=== PATIENT | male | born 1950 | race Caucasian/White ===

== ENCOUNTER 2022-06-13 03:32 | Emergency (ER) | payer MEDICARE, OTHER, SELFPAY ==
[2022-06-13 03:44] VITALS: BP 130/67; PULSE 74; RESP 18; TEMP 37.2; O2SAT 96; BMI 28.2
--- NOTE | 2022-06-13 03:46 | PC.NURSE ---
Patient blood glucose is 342 on hospital glucometer.
--- NOTE | 2022-06-13 04:03 | XRR_ITS ---
PROCEDURE INFORMATION: Exam: XR Chest Exam date and time: 06/13/2022 5:11 AM Age: 71 years old Clinical indication: Other: Hypoglycemia HX renal failure TECHNIQUE: Imaging protocol: Radiologic exam of the chest. Views: 1 view. COMPARISON: No relevant prior studies available. FINDINGS: Tubes, catheters and devices: Right central catheter tip projects over the SVC. Lungs: No consolidation. Pleural spaces: Unremarkable. No pleural effusion. No pneumothorax. Heart/Mediastinum: Cardiomegaly. Bones/joints: No acute fracture. XR/XR chest 1V portable [id number] IMPRESSION: No acute findings.
--- NOTE | 2022-06-13 04:19 | USR_ITS ---
PROCEDURE INFORMATION: Exam: US Duplex Left Lower Extremity Arteries Or Arterial Bypass Grafts Exam date and time: 06/13/2022 4:44 AM Age: 71 years old Clinical indication: Other: Discolored toes; Additional info: Discolored toes HX vasc disease TECHNIQUE: Imaging protocol: Left Real-time duplex scan of the arteries or arterial bypass grafts of the left lower extremity with 2-D haque scale, color Doppler flow and spectral waveform analysis. Images documented and saved. COMPARISON: CR (LOW EXM, ) 06/13/2022 4:27 AM FINDINGS: Left common femoral artery: No occlusion or significant stenosis. Normal waveform. Left superficial femoral artery: No occlusion or significant stenosis. Normal waveform. Left popliteal artery: No occlusion or significant stenosis. Normal waveform. Left calf/foot arteries: Triphasic flow throughout the left lower extremity except for biphasic flow in the left anterior tibial artery and dorsalis pedis artery. Other arteries: No significant arterial stenosis based on Doppler velocities and velocity ratios. US/CV arterial duplex [facility] [id number] IMPRESSION: 1. No significant arterial stenosis based on Doppler velocities and velocity ratios. 2. Triphasic flow throughout the left lower extremity except for biphasic flow in the left anterior tibial artery and dorsalis pedis artery.
--- NOTE | 2022-06-13 04:19 | XRR_ITS ---
PROCEDURE INFORMATION: Exam: XR Left Foot Exam date and time: 06/13/2022 4:27 AM Age: 71 years old Clinical indication: Other: Bruised discolored L forefoot TECHNIQUE: Imaging protocol: Radiologic exam of the Left foot. Views: 3 or more views. COMPARISON: No relevant prior studies available. FINDINGS: Bones/joints: Degenerative changes are noted. Focal area of cortical irregularity noted along the 4th metatarsal shaft best seen on the oblique view. Soft tissues: Normal. XR/XR foot LT min 3V* [id number] IMPRESSION: Question fracture of the 4th metatarsal shaft, age indeterminate, best seen on the oblique view.
--- NOTE | 2022-06-13 04:20 | W.ED.GENADLT ---
HPI - General Adult General: Chief complaint: General Medical Stated complaint: HYPOGLYCEMIA Source: patient History of Present Illness: 71-year-old male with a history of coronary disease and end-stage renal disease. He had several sessions of dialysis through his new catheter, placed 4 weeks ago at an outside facility. He presents with a low blood sugar, as low as 42 at home. He had drank juice, milk, and ate some sweet cereal without much improvement. Here his sugar is 322. He has also noticed discoloration and numbness to his left forefoot/second and third toes without known trauma. He notes that his feet are numb. He does not have neuropathic pain anymore, but does have a history of diabetes. He has not had problems with peripheral vascular disease known in the past. Onset (ago): hour(s) Location: lower extremity Radiation: non-radiation Quality: other Pain Consistency: other Relieving factors: other Exacerbating factors: other Associated symptoms: Reports confusion (When sugar was low), diaphoresis (When sugar was low, resolved), nausea and rash; Deny chest pain, cough, fevers/chills, short of breath or vomiting Review of Systems Const: Reports: diaphoresis (When sugar was low, resolved) Eyes: Reports: change in vision (When sugar was low now resolved) Card: Denies: chest pain GI: Reports: nausea; Denies: vomiting Skin/Breast: Reports: rash Neuro: Reports: confusion (When sugar was low) Physical Exam Const: COMMON NORMALS: no acute distress GENERAL APPEARANCE: cooperative; not ill appearing and not frail appearing HENMT: COMMON NORMALS: normocephalic, atraumatic and Normal external nose present HEAD & SCALP: normocephalic and atraumatic FACE & SINUS: normal facial exam and face symmetric NOSE: Normal external nose present Eye: COMMON NORMALS: Equal, round and reactive pupils present and EOMs intact bilaterally PUPIL: Yes Equal, round and reactive pupils present Neck/C-Spine: GENERAL: Yes trachea midline Chest: CHEST: Yes Symmetrical chest wall rise Resp: COMMON NORMALS: normal respiratory effort, No retractions, No use of accessory muscles and clear to auscultation bilaterally AUSCULTATION: clear to auscultation bilaterally Cardio: COMMON NORMALS: regular rate and regular rhythm RATE: regular rate RHYTHM: regular rhythm GI: COMMON NORMALS: Normal to inspection, nondistended, normoactive bowel sounds present Extremity: GENERAL: Yes edema (1-2+) OTHER: Purpuric discoloration to second and third toes. Less so to the fourth toe. Neuro: JENSEN COMA SCALE: document GCS findings Larsen coma scale eye opening: Spontaneous Jensen coma scale verbal response: Orientated Jensen coma scale motor response: Obey commands Jensen coma scale total score: 15 SENSORY EXAM: Yes extremities (intact) Psych: COMMON NORMALS: speech normal SPEECH: Yes normal speech Skin: COMMON NORMALS: no rashes or lesions noted GENERAL SKIN EXAM: no rashes or lesions noted Course Vital Signs: Vital signs: Vital Signs Temperature 98.9 F 06/13/22 03:44 Pulse Rate 90 06/13/22 06:35 Respiratory Rate 16 06/13/22 06:35 Blood Pressure 139/73 06/13/22 06:35 Pulse Oximetry 96 06/13/22 06:35 Oxygen Delivery Me thod 06/13/22 06:35 [facility] - General Adult Medical Decision Making 71-year-old with low blood sugar at home. Sugars been high here. He is adjusting his insulin pump and it is coming down slowly. His hemoglobin is 10. His creatinine is 2.6. We do not have prior parameters for his creatinine, although he is a dialysis patient. His electrolytes are essentially stable. Liver enzymes are normal. Chest x-ray shows no acute findings. Foot x-ray shows no acute fracture in the area of question. There appears to be an old metatarsal shaft fracture. Although the toes are not cold, lower extremity ultrasound is done looking for high-grade stenosis as the patient is a diabetic with a history of coronary disease. There is no high-grade stenosis there is flow past the ankle present although the flow is abnormal. In this case, even if there was occlusion is likely microangiopathic and not treatable by intervention. The patient is already on Plavix and aspirin as well as a statin, which is optimal medical therapy. He was counseled regarding this. We will get him an appointment with wound care in case this progresses. He knows to return for rapid progression. He now states, that he may have contused the foot not necessarily knowing as he has a history of neuropathy with numbness. This is more likely. Lab Data 06/13/22 04:11 06/13/22 04:11 Radiology Impressions Chest X-Ray 06/13/22 04:03 IMPRESSION: No acute findings. Foot X-Ray 06/13/22 04:19 IMPRESSION: Question fracture of the 4th metatarsal shaft, age indeterminate, best seen on the oblique view. Laboratory Results WBC 7.4 10^3/uL (4.0-10.0) 06/13/22 04:11 RBC 3.28 10^6/uL (4.1-5.3) L 06/13/22 04:11 Hgb 10.2 g/dL (11.7-16.6) L 06/13/22 04:11 Hct 31.7 % (42.0-52.0) L 06/13/22 04:11 MCV 96.6 fl (80-94) H 06/13/22 04:11 MCH 31.1 pg (28.0-34.0) 06/13/22 04:11 MCHC 32.2 g/dL (30.0-36.0) 06/13/22 04:11 RDW 16.7 % (12.1-15.1) H 06/13/22 04:11 Plt Count 355 10^3/cmm (130-400) 06/13/22 04:11 MPV 10.3 fL (7.4-10.4) 06/13/22 04:11 Neut % (Auto) 64.2 % 06/13/22 04:11 Lymph % (Auto) 19.2 % 06/13/22 04:11 [place] % (Auto) 9.3 % 06/13/22 04:11 Eos % (Auto) 5.0 % 06/13/22 04:11 Baso % (Auto) 1.1 % 06/13/22 04:11 Neut # (Auto) 4.73 10^3/uL (1.8-7.7) 06/13/22 04:11 Lymph # (Auto) 1.4 10^3/uL (0.8-4.8) 06/13/22 04:11 [place] # (Auto) 0.7 10^3/uL (0.2-0.9) 06/13/22 04:11 Eos # (Auto) 0.4 10^3/uL (0.0-0.8) 06/13/22 04:11 Baso # (Auto) 0.1 10^3/uL (0.0-0.1) 06/13/22 04:11 Nucleated RBC % (auto) 0 % 06/13/22 04:11 Nucleated RBCs # 0.0 /100WBC 06/13/22 04:11 Sodium 135 mmol/L (136-145) L 06/13/22 04:11 Potassium 4.0 mmol/L (3.5-5.1) 06/13/22 04:11 Chloride 93 mmol/L (98-107) L 06/13/22 04:11 Carbon Dioxide 29 mmol/L (22-29) 06/13/22 04:11 Anion Gap 17.0 (5-19) 06/13/22 04:11 BUN 36 mg/dL (8-23) H 06/13/22 04:11 Creatinine 2.6 mg/dL (0.7-1.2) H 06/13/22 04:11 GFR Calculation Not Reportable 06/13/22 04:11 Glucose 149 mg/dL (65-115) H 06/13/22 04:11 Calculated Osmolality 291 mOsm/kg (285-295) 06/13/22 04:11 Calcium 8.9 mg/dL (8.5-10.5) 06/13/22 04:11 Phosphorus 3.6 mg/dL (2.5-4.5) 06/13/22 04:11 Magnesium 1.9 mg/dL (1.7-2.3) 06/13/22 04:11 Total Bilirubin 0.2 mg/dL (0.15-1.2) 06/13/22 04:11 AST 29 U/L (0-40) 06/13/22 04:11 ALT 36 U/L (0-41) 06/13/22 04:11 Alkaline Phosphatase 105 U/L (40-130) 06/13/22 04:11 Total Protein 8.0 g/dL (6.6-8.7) 06/13/22 04:11 Albumin 4.4 g/dL (3.5-5.2) 06/13/22 04:11 Globulin 3.6 g/dL (1.3-4.6) 06/13/22 04:11 Discharge Plan Discharge Patient Disposition: Home Clinical Impression: Contusion of foot, left, Hypoglycemia associated with diabetes Condition: Stable Discharge Orders: Discharge ED (Routine); Ordered 06/13/22 Ordered By: Kt Love Patient Instructions: Hypoglycemia in a Person with Diabetes (ED), Foot Contusion (ED) Activity Restrictions/Additional Instructions: Case management will make you an appointment with our wound care clinic. You should get a call from them on Wednesday or Wednesday. Return for worsening discoloration of the toes, toes feeling significantly cold, or breaking open with weeping wounds. Return also for fever. Watch your sugar closely today and treat accordingly. Coding Level of Care Code ED Offset Press Operator Helper for Chg Fwd Exam Comprehensive
[2022-06-13 04:25] LABS: Basophils # 0.1 10^3/uL (0.0-0.1); Basophils % 1.1 %; Eosinophils # 0.4 10^3/uL (0.0-0.8); Hematocrit 31.7 % (42.0-52.0); Hemoglobin 10.2 g/dL (11.7-16.6); Lymphocytes # 1.4 10^3/uL (0.8-4.8); Lymphocytes % 19.2 %; Mean Corpuscular HGB Conc 32.2 g/dL (30.0-36.0); Mean Corpuscular Hemoglobin 31.1 pg (28.0-34.0); Mean Corpuscular Volume 96.6 fl (80-94); Mean Platelet Volume 10.3 fL (7.4-10.4); Monocytes # 0.7 10^3/uL (0.2-0.9); Monocytes % 9.3 %; Neutrophils # 4.73 10^3/uL (1.8-7.7); Neutrophils % 64.2 %; Nucleated Red Blood Cells % 0 %; Platelet Count 355 10^3/cmm (130-400); Red Blood Count 3.28 10^6/uL (4.1-5.3); Red Cell Distribution Width 16.7 % (12.1-15.1); White Blood Count 7.4 10^3/uL (4.0-10.0)
[2022-06-13 04:45] LABS: Alanine Aminotransferase 36 U/L (0-41); Albumin Level 4.4 g/dL (3.5-5.2); Alkaline Phosphatase 105 U/L (40-130); Aspartate Amino Transferase 29 U/L (0-40); Blood Urea Nitrogen 36 mg/dL (8-23); Calcium 8.9 mg/dL (8.5-10.5); Carbon Dioxide 29 mmol/L (22-29); Chloride 93 mmol/L (98-107); Globulin 3.6 g/dL (1.3-4.6); Glucose 149 mg/dL (65-115); Magnesium 1.9 mg/dL (1.7-2.3); Osmolality Calculated 291 mOsm/kg (285-295); Phosphorus 3.6 mg/dL (2.5-4.5); Sodium 135 mmol/L (136-145); Total Bilirubin 0.2 mg/dL (0.15-1.2)
[2022-06-13 06:35] VITALS: BP 139/73; PULSE 90; RESP 16; O2SAT 96
[2022-06-14 22:47] LABS: Glucose Point of Care 342 mg/dL (70-110)
[2022-06-14 22:47] LABS: Glucose Point of Care 392 mg/dL (70-110)
== END 2022-06-13 07:34 | disposition home or self-care (01) ==
PROVIDERS: Emergency Provider Emergency Medicine
DX: E11.65 Type 2 diabetes mellitus with hyperglycemia (principal); S90.32XA Contusion of left foot, initial encounter; X58.XXXA Exposure to other specified factors, initial encounter; Z79.4 Long term (current) use of insulin; Z96.41 Presence of insulin pump (external) (internal); E11.22 Type 2 diabetes mellitus with diabetic chronic kidney disease; N18.6 End stage renal disease; Z99.2 Dependence on renal dialysis; I25.10 Atherosclerotic heart disease of native coronary artery without angina pectoris
CPT/HCPCS: 36416; 71045; 73630; 80053; 82962; 83735; 84100; 85025; 93926; 99284

== ENCOUNTER 2022-07-03 04:08 | Emergency (ER) | payer MEDICARE, OTHER, SELFPAY ==
--- NOTE | 2022-07-03 04:11 | ECG_ITS ---
[facility] Test Date: 2022-07-03 Pat Name: Elliot Flores Jr Department: Room: Gender: Male Block Cuber: : 1950 Requested By: Bravo Campos Order Number: [id number] Charlette MD: Suzette Tavares M.D. Measurements Intervals [place] Rate: 75 P: 52 MO: 236 QRS: -38 QRSD: 121 T: 257 QT: 434 QTc: 487 Interpretive Statements SINUS RHYTHM WITH FIRST DEGREE AV BLOCK LEFT AXIS DEVIATION [QRS AXIS < -30] LEFT VENTRICULAR HYPERTROPHY AND ST-T CHANGE [VOLTAGE CRITERIA PLUS ST/T ABNORMALITY] No previous ECG available for comparison Electronically Signed On 07-03-2022 7:37:27 PROJECT MANAGER/TEAM COACH by Suzette Tavares M.D. [id number]
--- NOTE | 2022-07-03 04:12 | XRR_ITS ---
PROCEDURE INFORMATION: Exam: XR Chest Exam date and time: 07/03/2022 4:14 AM Age: 71 years old Clinical indication: Shortness of breath; Prior surgery; Surgery type: Dialysis cath. Coronary stents x4; Patient HX: C/O SOB. TECHNIQUE: Imaging protocol: Radiologic exam of the chest. Views: 1 view. COMPARISON: CR (CHEST, ) 06/13/2022 5:11 AM FINDINGS: Tubes, catheters and devices: Right central catheter tip projects over the SVC. Lungs: No consolidation. Pleural spaces: Unremarkable. No pleural effusion. No pneumothorax. Heart/Mediastinum: Cardiomegaly. Bones/joints: No acute fracture. XR/XR chest 1V portable [id number] IMPRESSION: No acute findings.
--- NOTE | 2022-07-03 04:15 | W.ED.SOB ---
HPI - SOB/Dyspnea General: Chief Complaint: Shortness of Breath/Dyspnea Stated Complaint: SOB Time Seen by Provider: 07/03/22 04:08 Source: patient and EMS Mode of arrival: EMS Limitations: no limitations History of Present Illness: HPI Narrative: 71-year-old male with history of end-stage renal disease states he had woke up this morning with sudden shortness of breath and anxiety when he states they arrived he is wearing oxygen from a family member states he is very anxious with tachypnea. he states he feels much improved he is able speak in full sentences here he has no pain he has minimal dyspnea is pulse ox here is 100% on room air denies any cough or fever he goes to dialysis Wednesday and did get dialysis yesterday. Associated symptoms: Deny abdominal pain, chest pain, fever(s), nausea or vomiting Review of Systems Const: Denies: fever(s), chills, body aches or change in appetite Eyes: Denies: blurry vision or eye discomfort ENMT: Denies: throat pain or dental pain Card: Denies: chest pain Resp: Reports: dyspnea GI: Denies: abdominal pain, nausea, vomiting or diarrhea : Denies: dysuria Musc: Denies: neck pain or back pain Skin/Breast: Denies: rash Neuro: Denies: headache(s) Psych: Reports: anxiety Scott/Lymph: Denies: easy bruising All/Imm: Denies: urticaria PFS ED PFSH: Social History (Updated 07/03/22 @ 04:16 by Bravo Campos MD) Substance/Drug Use: never Physical Exam Const: COMMON NORMALS: no acute distress, patient oriented x3 and healthy appearing HENMT: COMMON NORMALS: normocephalic and atraumatic HEAD & SCALP: normocephalic and atraumatic Eye: COMMON NORMALS: Equal, round and reactive pupils present and EOMs intact bilaterally PUPIL: Yes Equal, round and reactive pupils present Neck/C-Spine: COMMON NORMALS: full ROM and supple Chest: COMMONS NORMALS: normal inspection of the chest and normal palpation of entire chest wall Resp: COMMON NORMALS: normal respiratory effort, No retractions, No use of accessory muscles and clear to auscultation bilaterally AUSCULTATION: clear to auscultation bilaterally Cardio: COMMON NORMALS: regular rate, regular rhythm and No murmurs present (Cardio) RATE: regular rate RHYTHM: regular rhythm GI: COMMON NORMALS: Normal to inspection, nondistended, normoactive bowel sounds present, Soft to palpation, non-tender and no masses PALPATION: Yes Soft to palpation Extremity: COMMON NORMALS: normal to inspection and full ROM Neuro: COMMON NORMALS: patient oriented x3, moves all extremities and no focal motor deficits Psych: COMMON NORMALS: mental status grossly normal, Normal thought process present and cooperative THOUGHT PROCESS: Normal thought process present Skin: COMMON NORMALS: no rashes or lesions noted and no wounds GENERAL SKIN EXAM: no rashes or lesions noted Course Vital Signs: Vital signs: Vital Signs Temperature 97.9 F 07/03/22 04:16 Pulse Rate 65 07/03/22 04:53 Respiratory Rate 16 07/03/22 04:53 Blood Pressure 124/62 07/03/22 04:53 Pulse Oximetry 97 07/03/22 04:53 Oxygen Delivery Me thod 07/03/22 04:53 MDM - SOB/Dyspnea Medical Decision Making Patient presents here with dyspnea could be a panic attack he has been well here no hypoxia we will give him a dose of Lasix received dialysis on Wednesday he is to follow-up then he is return if worsening he understands agrees to plan. Lab Data 07/03/22 03:24 07/03/22 03:24 Labs/Radiology: Laboratory Results WBC 8.6 10^3/uL (4.0-10.0) 07/03/22 03:24 RBC 3.52 10^6/uL (4.1-5.3) L 07/03/22 03:24 Hgb 11.0 g/dL (11.7-16.6) L 07/03/22 03:24 Hct 33.2 % (42.0-52.0) L 07/03/22 03:24 MCV 94.3 fl (80-94) H 07/03/22 03:24 MCH 31.3 pg (28.0-34.0) 07/03/22 03:24 MCHC 33.1 g/dL (30.0-36.0) 07/03/22 03:24 RDW 16.5 % (12.1-15.1) H 07/03/22 03:24 Plt Count 364 10^3/cmm (130-400) 07/03/22 03:24 MPV 9.6 fL (7.4-10.4) 07/03/22 03:24 Neut % (Auto) 58.8 % 07/03/22 03:24 Lymph % (Auto) 24.8 % 07/03/22 03:24 [place] % (Auto) 9.4 % 07/03/22 03:24 Eos % (Auto) 5.6 % 07/03/22 03:24 Baso % (Auto) 0.7 % 07/03/22 03:24 Neut # (Auto) 5.03 10^3/uL (1.8-7.7) 07/03/22 03:24 Lymph # (Auto) 2.1 10^3/uL (0.8-4.8) 07/03/22 03:24 [place] # (Auto) 0.8 10^3/uL (0.2-0.9) 07/03/22 03:24 Eos # (Auto) 0.5 10^3/uL (0.0-0.8) 07/03/22 03:24 Baso # (Auto) 0.1 10^3/uL (0.0-0.1) 07/03/22 03:24 Nucleated RBC % (auto) 0 % 07/03/22 03:24 Nucleated RBCs # 0.0 /100WBC 07/03/22 03:24 Sodium 138 mmol/L (136-145) 07/03/22 03:24 Potassium 4.2 mmol/L (3.5-5.1) 07/03/22 03:24 Chloride 95 mmol/L (98-107) L 07/03/22 03:24 Carbon Dioxide 29 mmol/L (22-29) 07/03/22 03:24 Anion Gap 18.2 (5-19) 07/03/22 03:24 BUN 24 mg/dL (8-23) H 07/03/22 03:24 Creatinine 2.5 mg/dL (0.7-1.2) H 07/03/22 03:24 GFR Calculation Not Reportable 07/03/22 03:24 Glucose 134 mg/dL (65-115) H 07/03/22 03:24 Calculated Osmolality 292 mOsm/kg (285-295) 07/03/22 03:24 Calcium 9.5 mg/dL (8.5-10.5) 07/03/22 03:24 Total Bilirubin 0.3 mg/dL (0.15-1.2) 07/03/22 03:24 AST 23 U/L (0-40) 07/03/22 03:24 ALT 27 U/L (0-41) 07/03/22 03:24 Alkaline Phosphatase 97 U/L (40-130) 07/03/22 03:24 NT-Pro-B Natriuret Pep 73422 pg/mL (0-125) H 07/03/22 03:24 Total Protein 7.3 g/dL (6.6-8.7) 07/03/22 03:24 Albumin 4.4 g/dL (3.5-5.2) 07/03/22 03:24 Globulin 2.9 g/dL (1.3-4.6) 07/03/22 03:24 EKG Data EKG 1: I personally reviewed and interpreted this EKG as follows: EKG Interpretation Date: 07/03/22 EKG interpretation time: 04:14 Interpretation: nsr hr [address] or t wave abnormalities qrs 121 qtc 463 Discharge Plan Discharge Patient Disposition: Home Clinical Impression: ESRD (end stage renal disease), Dyspnea Discharge Orders: Discharge ED (Routine); Ordered 07/03/22 Ordered By: Bravo Campos Discharge Diet: Advance as tolerated Discharge Activity: Resume usual activity Patient Instructions: Dyspnea (ED) Coding Level of Care Code ED Sh[place] Headman for Chg Fwd Exam Comprehensive
[2022-07-03 04:16] VITALS: BP 126/62; PULSE 75; RESP 16; TEMP 36.6; O2SAT 100; BMI 27.6
[2022-07-03 04:23] LABS: Basophils # 0.1 10^3/uL (0.0-0.1); Basophils % 0.7 %; Eosinophils # 0.5 10^3/uL (0.0-0.8); Eosinophils % 5.6 %; Hematocrit 33.2 % (42.0-52.0); Lymphocytes # 2.1 10^3/uL (0.8-4.8); Lymphocytes % 24.8 %; Mean Corpuscular HGB Conc 33.1 g/dL (30.0-36.0); Mean Corpuscular Hemoglobin 31.3 pg (28.0-34.0); Mean Corpuscular Volume 94.3 fl (80-94); Mean Platelet Volume 9.6 fL (7.4-10.4); Monocytes # 0.8 10^3/uL (0.2-0.9); Monocytes % 9.4 %; Neutrophils # 5.03 10^3/uL (1.8-7.7); Neutrophils % 58.8 %; Nucleated Red Blood Cells % 0 %; Platelet Count 364 10^3/cmm (130-400); Red Blood Count 3.52 10^6/uL (4.1-5.3); Red Cell Distribution Width 16.5 % (12.1-15.1); White Blood Count 8.6 10^3/uL (4.0-10.0)
[2022-07-03 04:49] LABS: Alanine Aminotransferase 27 U/L (0-41); Albumin Level 4.4 g/dL (3.5-5.2); Alkaline Phosphatase 97 U/L (40-130); Anion Gap 18.2 (5-19); Aspartate Amino Transferase 23 U/L (0-40); Blood Urea Nitrogen 24 mg/dL (8-23); Calcium 9.5 mg/dL (8.5-10.5); Carbon Dioxide 29 mmol/L (22-29); Chloride 95 mmol/L (98-107); Globulin 2.9 g/dL (1.3-4.6); Glucose 134 mg/dL (65-115); Osmolality Calculated 292 mOsm/kg (285-295); Potassium 4.2 mmol/L (3.5-5.1); Sodium 138 mmol/L (136-145); Total Bilirubin 0.3 mg/dL (0.15-1.2); Total Protein 7.3 g/dL (6.6-8.7)
[2022-07-03 04:53] VITALS: BP 124/62; PULSE 65; RESP 16; O2SAT 97
[2022-07-03] MEDS: FUROsemide 10 mg/mL SDV 4mL 40 MG IVP (05:17)
[2022-07-03 05:20] VITALS: BP 116/59; PULSE 69; RESP 16; TEMP 36.7; O2SAT 97
== END 2022-07-03 05:55 | disposition home or self-care (01) ==
PROVIDERS: Emergency Provider Emergency Medicine
DX: N18.6 End stage renal disease (principal); Z99.2 Dependence on renal dialysis; R06.00 Dyspnea, unspecified
CPT/HCPCS: 71045; 80053; 83880; 85025; 93005; 96374; 99285; J1940

== ENCOUNTER → 2022-12-04 08:56 | Outpatient (BNVA) | payer MEDICARE, OTHER, SELFPAY | PROVIDERS: Visit Provider Podiatrist Foot & Ankle Surgery | DX: E11.42 Type 2 diabetes mellitus with diabetic polyneuropathy (principal); M21.611 Bunion of right foot; M21.612 Bunion of left foot; M20.41 Other hammer toe(s) (acquired), right foot; M20.42 Other hammer toe(s) (acquired), left foot; E11.22 Type 2 diabetes mellitus with diabetic chronic kidney disease; N18.6 End stage renal disease | CPT/HCPCS: 99204 ==

== ENCOUNTER → 2023-02-22 14:15 | Outpatient (BNVA) | payer MEDICARE, OTHER, SELFPAY | PROVIDERS: Visit Provider Podiatrist Foot & Ankle Surgery | DX: B35.1 Tinea unguium (principal); E11.42 Type 2 diabetes mellitus with diabetic polyneuropathy; M21.611 Bunion of right foot; M21.612 Bunion of left foot; M20.41 Other hammer toe(s) (acquired), right foot; M20.42 Other hammer toe(s) (acquired), left foot; N18.6 End stage renal disease; E11.22 Type 2 diabetes mellitus with diabetic chronic kidney disease | CPT/HCPCS: 11721 ==

== ENCOUNTER 2023-04-13 14:29 | Inpatient (IN) | payer OTHER, SELFPAY ==
--- NOTE | 2023-04-13 14:30 | ECG_ITS ---
[facility] Test Date: 2023-04-13 Pat Name: Elliot Flores Jr Department: Room: Gender: Male Surgery Specialist: : 1950 Requested By: Roverto Regan Order Number: [id number] Charlette MD: Charles Murillo M.D. Measurements Intervals [place] Rate: 103 P: 72 [place]: 213 QRS: -51 QRSD: 117 T: 82 QT: 360 QTc: 472 Interpretive Statements SINUS TACHYCARDIA WITH FIRST DEGREE AV BLOCK WITH FREQUENT VENTRICULAR PREMATURE COMPLEXES LEFT ANTERIOR FASCICULAR BLOCK [QRS AXIS <= -45, QR IN I, RS IN II] LEFT VENTRICULAR HYPERTROPHY AND ST-T CHANGE [VOLTAGE CRITERIA PLUS ST/T ABNORMALITY] Compared to ECG 07/03/2022 04:14:01 Ventricular premature complex(es) now present Left anterior fascicular block now present Sinus rhythm no longer present Left-axis deviation no longer present ST (T wave) deviation still present Electronically Signed On 04-13-2023 17:19:43 SEED PACKER by Charles Murillo M.D. [id number]
--- NOTE | 2023-04-13 14:30 | XR_ITS ---
WS: [id number] Portable AP upright chest, 04/13/2023 Clinical Data: dyspnea/cough Comparison: Portable chest, 07/03/2022 Findings: No nodules, masses or effusions are seen. The heart is normal. The pulmonary vascularity is not increased. No pneumonia or pneumothorax is seen. The right dialysis catheter remains in the same position. The aortic arch and descending thoracic aorta show mild tortuosity. Impression: Atherosclerosis.
[2023-04-13 14:31] VITALS: BP 197/92; PULSE 112; RESP 18; TEMP 39.1; O2SAT 92; BMI 28.3
--- NOTE | 2023-04-13 14:34 | ED_ITS ---
HPI - General Adult General: Chief complaint: Fever Stated complaint: Fever/ chills Time Seen by Provider: 04/13/23 14:30 Source: patient Mode of arrival: EMS History of Present Illness: 72-year-old male presents emergency room he has a new fistula in his right arm that is slightly reddened. He has a dialysis port in the right subclavian space. The fistula was placed by a vascular surgeon in [facility]. Today he went to dialysis and had a significant fever on Reef arrival here he has a temp of 1024 he has a slight nonproductive cough no vomiting no diarrhea. He has some tenderness in the area of the fistula. Onset (ago): day(s) Location: right and upper extremity Severity: moderate Quality: aching Pain Consistency: constant Relieving factors: none Exacerbating factors: none Associated symptoms: Reports cough; Deny chest pain or dyspnea Treatments prior to arrival: none Review of Systems Const: Reports: fever(s) and chills Card: Denies: chest pain Resp: Denies: dyspnea GI: Denies: abdominal pain : Denies: dysuria, urinary frequency or urinary urgency Musc: Denies: neck pain or back pain Skin/Breast: Reports: erythema (Right arm at incision site for fistula) PFSH ED PFSH: Medical History CAD (coronary artery disease) ESRD (end stage renal disease) Hyperlipidemia Hypertension Migraines Type 2 diabetes mellitus Surgical History H/O hernia repair Stented coronary artery Social History Substance/Drug Use: never Physical Exam Const: GENERAL APPEARANCE: cooperative and comfortable ORIENTATION /CONSCIOUSNESS: Yes awake, Yes oriented to person, Yes oriented to place and Yes oriented to time HENMT: COMMON NORMALS: normocephalic, atraumatic and hearing grossly normal bilaterally HEAD & SCALP: normocephalic and atraumatic Resp: COMMON NORMALS: normal respiratory effort, No retractions, No use of accessory muscles and clear to auscultation bilaterally AUSCULTATION: clear to auscultation bilaterally Cardio: COMMON NORMALS: regular rate, regular rhythm and No murmurs present (Cardio) RATE: regular rate RHYTHM: regular rhythm GI: COMMON NORMALS: Soft to palpation and No hepatosplenomegaly present AUSCULTATION: Yes normoactive bowel sounds PALPATION: Yes Soft to palpation, No Tenderness to palpation present (GI), No Guarding due to palpation present (GI) and Yes No hepatosplenomegaly present Extremity: COMMON NORMALS: normal to inspection, capillary refill normal, no clubbing, cyanosis or edema, no calf tenderness and no pedal edema Neuro: SENSORIUM/ORIENTATION: Yes oriented to person, Yes oriented to place and Yes oriented to time Skin: COMMON NORMALS: no rashes or lesions noted GENERAL SKIN EXAM: no rashes or lesions noted Course Vital Signs: Vital signs: Vital Signs Temperature 98.7 F 04/17/23 12:00 Pulse Rate 76 04/17/23 12:00 Respiratory Rate 18 04/17/23 12:00 Blood Pressure 160/89 04/17/23 13:22 Pulse Oximetry 96 04/17/23 12:00 Oxygen Delivery Me thod Room Air 04/17/23 12:00 MDM - General Adult Medical Decision Making Leukocytosis elevated lactate. His blood cultures were repeated here however the were blood cultures done at dialysis as well as Vanco and gent given. I did not give the IV fluids because of his end-stage renal disease status and his blood pressure is more than adequate at this time. Medical Records I reviewed the patient's medical records. Lab Data I reviewed the patient's lab results. 04/17/23 04:27 04/17/23 04:27 Laboratory Results WBC 15.11 10^3/uL (3.29-11.43) H 04/13/23 15:04 RBC 3.49 10^6/uL (3.85-5.65) L 04/13/23 15:04 Hgb 11.30 g/dL (11.27-16.99) 04/13/23 15:04 Hct 33.6 % (37-53) L 04/13/23 15:04 MCV 96.3 fl (82-101) 04/13/23 15:04 MCH 32.4 pg (27-33) 04/13/23 15:04 MCHC 33.6 g/dL (30-55) 04/13/23 15:04 RDW 13.4 % (12.1-15.1) 04/13/23 15:04 Plt Count 328 10^3/cmm (157-399) 04/13/23 15:04 MPV 9.6 fL (7.4-10.4) 04/13/23 15:04 Neut % (Auto) 83.5 % 04/13/23 15:04 Lymph % (Auto) 6.9 % 04/13/23 15:04 Wake % (Auto) 8.8 % 04/13/23 15:04 Eos % (Auto) 0.0 % 04/13/23 15:04 Baso % (Auto) 0.2 % 04/13/23 15:04 Neut # (Auto) 12.61 10^3/uL (1.8-7.7) H 04/13/23 15:04 Lymph # (Auto) 1.1 10^3/uL (0.8-4.8) 04/13/23 15:04 Wake # (Auto) 1.3 10^3/uL (0.2-0.9) H 04/13/23 15:04 Eos # (Auto) 0.0 10^3/uL (0.0-0.8) 04/13/23 15:04 Baso # (Auto) 0.0 10^3/uL (0.0-0.1) 04/13/23 15:04 Nucleated RBC % (auto) 0 % 04/13/23 15:04 Nucleated RBCs # 0.0 /100WBC 04/13/23 15:04 Sodium 138 mmol/L (136-145) 04/13/23 15:04 Potassium 3.5 mmol/L (3.5-5.1) 04/13/23 15:04 Chloride 92 mmol/L (98-107) L 04/13/23 15:04 Carbon Dioxide 32 mmol/L (22-29) H 04/13/23 15:04 Anion Gap 17.5 (5-19) 04/13/23 15:04 BUN 16 mg/dL (8-23) 04/13/23 15:04 Creatinine 2.1 mg/dL (0.7-1.2) H 04/13/23 15:04 GFR Calculation Not Reportable 04/13/23 15:04 Glucose 111 mg/dL (65-115) 04/13/23 15:04 Calculated Osmolality 288 mOsm/kg (285-295) 04/13/23 15:04 Lactic Acid 1.5 mmol/L (0.5-2.2) 04/13/23 19:28 Lactic Acid (Sepsis) 1.2 mmol/L (0.5-2.2) 04/13/23 17:43 Calcium 9.0 mg/dL (8.5-10.5) 04/13/23 15:04 Total Bilirubin 0.7 mg/dL (0.15-1.2) 04/13/23 15:04 AST 13 U/L (0-40) 04/13/23 15:04 ALT 8 U/L (0-41) 04/13/23 15:04 Alkaline Phosphatase 84 U/L (40-130) 04/13/23 15:04 Total Protein 7.2 g/dL (6.6-8.7) 04/13/23 15:04 Albumin 3.8 g/dL (3.5-5.2) 04/13/23 15:04 Globulin 3.4 g/dL (1.3-4.6) 04/13/23 15:04 Procalcitonin 0.67 ng/mL (0-0.5) H 04/13/23 19:28 Urine Color Yellow (Yellow) 04/13/23 15:26 Urine Appearance Clear (CLEAR) 04/13/23 15:26 Urine pH 6 (5-7) 04/13/23 15:26 Ur Specific [place] 1.015 (1.005-1.030) 04/13/23 15:26 Urine Protein Neg (Negative) 04/13/23 15:26 Urine Glucose (UA) 4+ (Normal) H 04/13/23 15:26 Urine Ketones 1+ (Negative) H 04/13/23 15:26 Urine Blood Neg (Negative) 04/13/23 15:26 Urine Nitrate Negative (Negative) 04/13/23 15:26 Urine Bilirubin Neg (Negative) 04/13/23 15:26 Urine Urobilinogen Norm mg/dL (Negative) 04/13/23 15:26 Ur Leukocyte Esterase Negative (Negative) 04/13/23 15:26 Coronavirus 229E (PCR) Not detected (NOT DETECT) 04/13/23 15:38 Influenza Type A Ag negative (Negative) 04/13/23 15:38 Influenza Type B Ag negative (Negative) 04/13/23 15:38 SARS-CoV-2 (PCR) Not detected (NOT DETECT) 04/13/23 15:38 All radiology interpretation(s) finalized by discharge Discharge Plan Discharge Patient Disposition: Admitted As Inpatient Admit Provider: Gilda Alejandre Clinical Impression: Cellulitis, ESRD (end stage renal disease) Condition: Stable Discharge Diet: Cardiac and Diabetic Discharge Activity: Resume usual activity Coding Level of Care Code ED Transition Rn for Gabrielle Lagunas
[2023-04-13 15:16] LABS: Basophils % 0.2 %; Hematocrit 33.6 % (37-53); Lymphocytes # 1.1 10^3/uL (0.8-4.8); Lymphocytes % 6.9 %; Mean Corpuscular HGB Conc 33.6 g/dL (30-55); Mean Corpuscular Hemoglobin 32.4 pg (27-33); Mean Corpuscular Volume 96.3 fl (82-101); Mean Platelet Volume 9.6 fL (7.4-10.4); Monocytes # 1.3 10^3/uL (0.2-0.9); Monocytes % 8.8 %; Neutrophils # 12.61 10^3/uL (1.8-7.7); Neutrophils % 83.5 %; Nucleated Red Blood Cells % 0 %; Platelet Count 328 10^3/cmm (157-399); Red Blood Count 3.49 10^6/uL (3.85-5.65); Red Cell Distribution Width 13.4 % (12.1-15.1); White Blood Count 15.11 10^3/uL (3.29-11.43)
[2023-04-13 15:31] LABS: Add Urine Microscopic? NO; Charge for UA Resulting for Rev
--- NOTE | 2023-04-13 15:34 | PC.PHAR ---
pt states he takes care of his own medications-pt brought in med list that he states he takes-pt states the dr changed his nifedipine er-pt states the dr dced his nifedipine er 90mg daily on wednesday04/09/[address] changed to nifedipine er 60mg daily ext doesnt show when 60mg was last filled 90mg daily last filled 04/12/23 90d/s-faxed [place] med list
[2023-04-13 15:40] LABS: Lactic Sepsis W/Reflex 2.7 mmol/L (0.5-2.2)
[2023-04-13 15:41] LABS: Alanine Aminotransferase 8 U/L (0-41); Albumin Level 3.8 g/dL (3.5-5.2); Alkaline Phosphatase 84 U/L (40-130); Anion Gap 17.5 (5-19); Aspartate Amino Transferase 13 U/L (0-40); Blood Urea Nitrogen 16 mg/dL (8-23); Carbon Dioxide 32 mmol/L (22-29); Chloride 92 mmol/L (98-107); Globulin 3.4 g/dL (1.3-4.6); Glucose 111 mg/dL (65-115); Osmolality Calculated 288 mOsm/kg (285-295); Potassium 3.5 mmol/L (3.5-5.1); Sodium 138 mmol/L (136-145); Total Bilirubin 0.7 mg/dL (0.15-1.2); Total Protein 7.2 g/dL (6.6-8.7)
[2023-04-13 15:42] LABS: Bilirubin Urine Neg (Negative); Blood Urine Neg (Negative); Glucose Urine UA 4+ (Normal); Ketones Urine 1+ (Negative); Leukocyte Esterase Urine Negative (Negative); Nitrate Urine Negative (Negative); Protein Urine Neg (Negative); Specific Gravity, Urine 1.015 (1.005-1.030); Urine Appearance Clear (CLEAR); Urine Color Yellow (Yellow); Urobilinogen Urine Norm (Negative); pH Urine 6 (5-7)
[2023-04-13] MEDS: acetaminophen 325 mg Tablet 650 MG PO (16:23)
[2023-04-13 16:29] LABS: Influenza A by IFA negative (Negative); Influenza B by IFA negative (Negative)
[2023-04-13 16:56] LABS: Reflex Lactate Order REFLEX LACTIC ORDERD
[2023-04-13 17:54] LABS: Procalcitonin 0.56 ng/mL (0-0.5)
[2023-04-13 17:56] LABS: Adenovirus Not Detected (NOT DETECT); Chlamydia Pneumoniae Not Detected (NOT DETECT); Coronavirus 229E,HKU1,NL63,OC4 Not Detected (NOT DETECT); Human Metapneumovirus Not Detected (NOT DETECT); Human Rhinovirus/Enterovirus Not Detected (NOT DETECT); Influenza A Not Detected (NOT DETECT); Influenza A H1 Not Detected (NOT DETECT); Influenza A H1-2009 Not Detected (NOT DETECT); Influenza A H3 Not Detected (NOT DETECT); Influenza B Not Detected (NOT DETECT); Mycoplasma Pneumoniae Not Detected (NOT DETECT); Parainfluenza Virus Type 1 Not Detected (NOT DETECT); Parainfluenza Virus Type 2 Not Detected (NOT DETECT); Parainfluenza Virus Type 3 Not Detected (NOT DETECT); Parainfluenza Virus Type 4 Not Detected (NOT DETECT); Respiratory Syncytial Virus A Not Detected (NOT DETECT); Respiratory Syncytial Virus B Not Detected (NOT DETECT); SARS-COV-2 Not Detected (NOT DETECT)
[2023-04-13 18:15] LABS: Lactic Acid level (Lactate) 1.2 mmol/L (0.5-2.2)
--- NOTE | 2023-04-13 18:34 | P.HP_ITS ---
Providers/Chief Complaint Primary Care Provider: Joshua West MD Chief Complaint: Fever/ chills History of Present Illness Elliot Flores Jr is a 72 year old male with history of end-stage renal disease Wednesday, was sent from the dialysis center today for febrile event and chills. Patient is stating that he has experienced 2 episodes of loose stools yesterday he has not recently used any antibiotics no abdominal pain, he is endorsing fever with rigors. Please note his vascular surgeon is in [facility] who recently revised AV fistula 3 weeks ago, patient sutures are showing signs of inflammation in the ER he received antibiotics, he did receive 1 dose of vancomycin along gentamicin at dialysis center. Patient is septic likely sources AV fistula infection We will request WBC scan ER physician spoke with the vascular surgeon who is not concerned about AV fistula infection since there is no graft However sutures are inflamed Review of Systems Const: Reports: fever(s) and chills Eyes: Denies: change in vision ENMT: Denies: throat pain Card: Denies: chest pain Resp: Reports: dyspnea GI: Denies: abdominal pain : Denies: flank pain Musc: Denies: neck pain Skin/Breast: Reports: rash Neuro: Denies: headache(s) Psych: Reports: anxiety Medications/Allergies Home Medications Medication Instructions Recorded Confirmed Last Taken Type Diabetic shoes with 3 inserts #1 ea 12/04/22 04/13/23 Unknown Rx acetaminophen 650 mg 650 mg PO Q12H PRN Pain 04/13/23 04/13/23 Unknown History tablet,extended release ascorbic acid (vitamin C) 500 mg 500 mg PO DAILY 04/13/23 04/13/23 Unknown History tablet (Vitamin C) aspirin 81 mg tablet,delayed 81 mg PO DAILY 04/13/23 04/13/23 Unknown History release atorvastatin 80 mg tablet 80 mg PO DAILY 04/13/23 04/13/23 Unknown History bumetanide 1 mg tablet 1 mg PO DAILY 04/13/23 04/13/23 Unknown History calcium carbonate 200 mg calcium 400 mg PO QID PRN unknown 04/13/23 04/13/23 Unknown History (500 mg) chewable tablet (Tums) cholecalciferol (vitamin D3) 125 125 mcg PO DAILY 04/13/23 04/13/23 Unknown History mcg (5,000 unit) tablet (Vitamin D3) clonidine HCl 0.1 mg tablet 0.2 mg PO TID 04/13/23 04/13/23 Unknown History clopidogrel 75 mg tablet 75 mg PO DAILY 04/13/23 04/13/23 Unknown History cyanocobalamin (vitamin B-12) 1,000 mcg PO DAILY 04/13/23 04/13/23 Unknown History 1,000 mcg tablet (Vitamin B-12) finasteride 5 mg tablet 5 mg PO DAILY 04/13/23 04/13/23 Unknown History hydralazine 25 mg tablet 25 mg PO BID 04/13/23 04/13/23 Unknown History hydrocodone 5 mg-acetaminophen 325 1 tab PO Q4H PRN Pain 04/13/23 04/13/23 Unk nown History mg tablet insulin aspart U-100 100 unit/mL 5 - 10 unit SUBCUT TID 04/13/23 04/13/23 Unknown History subcutaneous solution (Novolog U-100 Insulin aspart) isosorbide mononitrate 60 mg 60 mg PO BID 04/13/23 04/13/23 Unknown History tablet,extended release 24 hr melatonin 3 mg tablet 3 mg PO BEDTIME 04/13/23 04/13/23 Unknown History metoprolol succinate 100 mg 100 mg PO DAILY 04/13/23 04/13/23 Unknown History tablet,extended release 24 hr nifedipine 60 mg tablet,extended 60 mg PO DAILY 04/13/23 04/13/23 04/13/23 03:00 History release nifedipine 90 mg tablet,extended 90 mg PO DAILY 04/13/23 04/13/23 04/09/23 History release nitroglycerin 0.4 mg sublingual 0.4 mg sublingual Q5M PRN Chest 04/13/23 04/13/23 Unknown History tablet (Nitrostat) Pain ondansetron 4 mg disintegrating 4 mg PO Q6H PRN Nausea And Vomiting 04/13/23 04/13/23 Unknown History tablet pantoprazole 40 mg tablet,delayed 40 mg PO BEDTIME 04/13/23 04/13/23 Unknown History release ranolazine 500 mg tablet,extended 500 mg PO BID 04/13/23 04/13/23 Unknown History release,12 hr tamsulosin 0.4 mg capsule 0.4 mg PO DAILY 04/13/23 04/13/23 Unknown History Allergies Allergy/AdvReac Type Severity Reaction Status Date / Time No Known Allergies Allergy Verified 04/13/23 15:02 PFSH Acute PFSH: Medical History ESRD (end stage renal disease) Social History Substance/Drug Use: never Vitals/I&O/Wt Last Vital Signs Temp 102.4 F H 04/13/23 14:31 Pulse 112 H 04/13/23 14:31 Resp 18 04/13/23 14:31 BP 197/92 04/13/23 14:31 Pulse Ox 92 04/13/23 14:31 O2 Del Method Room Air 04/13/23 14:31 Weight last 48 hrs Weight 94.801 kg Physical Exam Narrative: Pleasant and cooperative No active signs of fluid overload Insulin pump on his abdomen GCS 15 Nonfocal neuro exam He is wearing a mask Hypertensive Febrile No signs of meningitis Pleasant and cooperative Nonfocal neuro exam S1, S2 tachycardia Data 04/13/23 15:04 04/13/23 15:04 Micro: Microbiology 04/13/23 15:04 Blood Culture - Preliminary Blood SPECIMEN COLLECTED 04/13/23 15:00 Blood Culture - Preliminary Blood SPECIMEN COLLECTED A&P Assessment and plan (1) Cellulitis: (2) ESRD (end stage renal disease): (3) Sepsis: Plan Sepsis related to cellulitis around AV fistula site We will request WBC scan Start antibiotics Lactic acid is high Sepsis criteria met with fever tachypnea tachycardia leukocytosis high lactic acid endorgan damage Judicious use of IV fluids because patient does not make enough urine and he is dialysis dependent He is hypertensive at this point We will give 500mL bolus at this point Patient is full code If WBC scan is positive he will need to be transferred to [facility] where his vascular surgeon is Will request repeat cultures, lactic acid Patient is full code Renal diet Next session will be on We will consult nephrology tomorrow Patient does have a dialysis catheter in place as well DVT prophylaxis: Heparin Patient is stating that he wants to keep his insulin pump on does not want to u se subcutaneous insulin from the hospital Attestations Medical Necessity Statement*: More than 2 midnights anticipated Diagnoses Cellulitis L03.90 ESRD (end stage renal disease) N18.6 Sepsis A41.9
[2023-04-13] MEDS: piperacillin-tazobactam 3.375 GM in sodium chloride 0.9% (plus) 50 ML IV (19:33)
[2023-04-13] MEDS: sodium chloride 0.9% 1,000 ML 75 ML IV (19:36)
[2023-04-13] MEDS: heparin 5,000 unit/mL INJ 1 mL 5000 UNIT SUBCUT (19:38)
[2023-04-13 20:00] VITALS: BP 191/129; PULSE 95; RESP 18; O2SAT 97
[2023-04-13 20:00] LABS: Lactic Sepsis W/Reflex 1.5 mmol/L (0.5-2.2)
[2023-04-13 20:07] LABS: Procalcitonin 0.67 ng/mL (0-0.5)
[2023-04-13] MEDS: hyDRALAzine 50 mg Tablet PO (20:24)
[2023-04-13] MEDS: acetaminophen 325 mg Tablet PO (20:33)
[2023-04-13] MEDS: lactated ringers 500 ML 999 ML IV (20:34)
[2023-04-13 21:15] VITALS: BP 174/78; PULSE 101; RESP 25; TEMP 37.4; O2SAT 93
[2023-04-13] MEDS: clindamycin 600 MG/50 ML PREMIX 100 MG IV (22:14)
[2023-04-13 23:38] VITALS: BP 156/71; PULSE 79; RESP 17; TEMP 37.2; O2SAT 95
[2023-04-14] VITALS (13 sets, daily range): BP systolic 118–180; BP diastolic 52–90; PULSE 69–99; RESP 16–18; TEMP 36.8–38.3; O2SAT 91–94
[2023-04-14] MEDS: piperacillin-tazobactam 3.375 GM in sodium chloride 0.9% (plus) 50 ML IV ×3 (03:32→18:26)
[2023-04-14 04:51] LABS: Basophils % 0.3 %; Eosinophils % 0.1 %; Hematocrit 29.6 % (37-53); Lymphocytes # 0.8 10^3/uL (0.8-4.8); Lymphocytes % 6.1 %; Mean Corpuscular HGB Conc 33.8 g/dL (30-55); Mean Corpuscular Hemoglobin 33.1 pg (27-33); Monocytes # 1.5 10^3/uL (0.2-0.9); Monocytes % 11.3 %; Neutrophils % 81.8 %; Nucleated Red Blood Cells % 0 %; Platelet Count 277 10^3/cmm (157-399); Red Blood Count 3.02 10^6/uL (3.85-5.65); Red Cell Distribution Width 13.4 % (12.1-15.1); White Blood Count 12.83 10^3/uL (3.29-11.43)
[2023-04-14 05:19] LABS: Alanine Aminotransferase 10 U/L (0-41); Albumin Level 3.2 g/dL (3.5-5.2); Alkaline Phosphatase 72 U/L (40-130); Anion Gap 13.2 (5-19); Aspartate Amino Transferase 15 U/L (0-40); Blood Urea Nitrogen 24 mg/dL (8-23); Calcium 8.5 mg/dL (8.5-10.5); Carbon Dioxide 30 mmol/L (22-29); Chloride 93 mmol/L (98-107); Glucose 151 mg/dL (65-115); Magnesium 1.8 mg/dL (1.7-2.3); Osmolality Calculated 283 mOsm/kg (285-295); Phosphorus 1.7 mg/dL (2.5-4.5); Potassium 3.2 mmol/L (3.5-5.1); Sodium 133 mmol/L (136-145); Total Bilirubin 0.5 mg/dL (0.15-1.2); Total Protein 6.2 g/dL (6.6-8.7)
[2023-04-14] MEDS: acetaminophen 325 mg Tablet 650 MG PO ×2 (05:20→13:48)
[2023-04-14 05:22] LABS: Lactic Sepsis W/Reflex 1.7 mmol/L (0.5-2.2)
[2023-04-14 05:24] LABS: C Reactive Protein 180.2 mg/L (0.0-4.9)
[2023-04-14] MEDS: heparin 5,000 unit/mL INJ 1 mL 5000 UNIT SUBCUT ×2 (05:25→18:24)
--- NOTE | 2023-04-14 07:54 | P.CONIM_ITS ---
Providers/Reason For Consult Consulting Physician/Specialty*: [place]/ESRD Reason for Consult*: ESRD Attending Physician: Gilda Alejandre MD Primary Care Provider: Joshua West MD History of Present Illness History of Present Illness Elliot Flores Jr is a 72 year old male Patient is a 72-year-old male with past medical history of end-stage renal disease on Wednesday schedule, hypertension, diabetes, presented to the emergency department due to fevers and chills while he was at the dialysis yesterday. Patient reports that he had AV fistula placed about 6 weeks ago but underwent revision about 10 days ago by vascular surgery and it was noted the fistula site is red, noted by the dialysis nurse. Patient received 1 dose vancomycin and gentamicin at the dialys is center. He has right IJ tunnel catheter for the last 6 months. Blood cultures drawn and pending at this time. He is currently on broad-spectrum antibiotics including Zosyn and vancomycin . He underwent full session of dialysis yesterday. Lab data significant for hemoglobin of 10 potassium 3.2. Review of Systems Narrative: other ros negative Medications/Allergies Home Medications Medication Instructions Recorded Confirmed Last Taken Type Diabetic shoes with 3 inserts #1 ea 12/04/22 04/13/23 Unknown Rx acetaminophen 650 mg 650 mg PO Q12H PRN Pain 04/13/23 04/13/23 Unknown History tablet,extended release ascorbic acid (vitamin C) 500 mg 500 mg PO DAILY 04/13/23 04/13/23 Unknown History tablet (Vitamin C) aspirin 81 mg tablet,delayed 81 mg PO DAILY 04/13/23 04/13/23 Unknown History release atorvastatin 80 mg tablet 80 mg PO DAILY 04/13/23 04/13/23 Unknown History bumetanide 1 mg tablet 1 mg PO DAILY 04/13/23 04/13/23 Unknown History calcium carbonate 200 mg calcium 400 mg PO QID PRN unknown 04/13/23 04/13/23 Unknown History (500 mg) chewable tablet (Tums) cholecalciferol (vitamin D3) 125 125 mcg PO DAILY 04/13/23 04/13/23 Unknown History mcg (5,000 unit) tablet (Vitamin D3) clonidine HCl 0.1 mg tablet 0.2 mg PO TID 04/13/23 04/13/23 Unknown History clopidogrel 75 mg tablet 75 mg PO DAILY 04/13/23 04/13/23 Unknown History cyanocobalamin (vitamin B-12) 1,000 mcg PO DAILY 04/13/23 04/13/23 Unknown History 1,000 mcg tablet (Vitamin B-12) finasteride 5 mg tablet 5 mg PO DAILY 04/13/23 04/13/23 Unknown History hydralazine 25 mg tablet 25 mg PO BID 04/13/23 04/13/23 Unknown History hydrocodone 5 mg-acetaminophen 325 1 tab PO Q4H PRN Pain 04/13/23 04/13/23 Unknown History mg tablet insulin aspart U-100 100 unit/mL 5 - 10 unit SUBCUT TID 04/13/23 04/13/23 Unknown History subcutaneous solution (Novolog U-100 Insulin aspart) isosorbide mononitrate 60 mg 60 mg PO BID 04/13/23 04/13/23 Unknown History tablet,extended release 24 hr melatonin 3 mg tablet 3 mg PO BEDTIME 04/13/23 04/13/23 Unknown History metoprolol succinate 100 mg 100 mg PO DAILY 04/13/23 04/13/23 Unknown History tablet,extended release 24 hr nifedipine 60 mg tablet,extended 60 mg PO DAILY 04/13/23 04/13/23 04/13/23 03:00 History release nifedipine 90 mg tablet,extended 90 mg PO DAILY 04/13/23 04/13/23 04/09/23 History release nitroglycerin 0.4 mg sublingual 0.4 mg sublingual Q5M PRN Chest 04/13/23 1 06/13/22 Unknown History tablet (Nitrostat) Pain ondansetron 4 mg disintegrating 4 mg PO Q6H PRN Nausea And Vomiting 04/13/23 04/13/23 Unknown History tablet pantoprazole 40 mg tablet,delayed 40 mg PO BEDTIME 04/13/23 04/13/23 Unknown History release ranolazine 500 mg tablet,extended 500 mg PO BID 04/13/23 04/13/23 Unknown History release,12 hr tamsulosin 0.4 mg capsule 0.4 mg PO DAILY 04/13/23 04/13/23 Unknown History Allergies Allergy/AdvReac Type Severity Reaction Status Date / Time No Known Allergies Allergy Verified 04/13/23 15:02 Current Medications Generic Name Dose Route Start Last Admin Trade Name Freq PRN Reason Stop Dose Admin Acetaminophen 650 mg 04/14/23 04:08 04/14/23 05:20 Acetaminophen 325 Mg Tablet PO 650 mg Q12H PRN Administration mild pain or fever Heparin Sodium (Porcine) 5,000 unit 04/13/23 17:00 04/14/23 05:25 Heparin 5,000 Unit/Ml Inj 1 Ml SUBCUT 5,000 unit Q12H MELVA Administration Piperacillin Sod/Tazobactam 50 mls @ 12.5 mls/hr 04/13/23 18:00 04/14/23 03:32 Sod 3.375 gm/ Sodium Chloride IV 12.5 mls/hr Q8H MELVA Administration Protocol As Directed Clindamycin HCl/Dextrose 600 mg in 50 mls @ 100 mls/hr 04/13/23 22:00 04/14/23 00:16 Cleocin IV Infused Q12H MELVA Infusion Protocol PFSH Acute PFSH: Medical History ESRD (end stage renal disease) Social History Substance/Drug Use: never Vitals/I&O/Wt Last Vital Signs Temp 98.3 F 04/14/23 07:23 Pulse 86 04/14/23 07:23 Resp 16 04/14/23 07:23 BP 154/61 04/14/23 07:23 Pulse Ox 93 04/14/23 07:23 O2 Del Method Room Air 04/14/23 07:23 04/13/23 04/14/23 04/14/23 22:59 06:59 14:59 Intake Total 63.75 / 63.75 600 / 663.75 Output Total 250 / 250 Balance 63.75 / 63.75 350 / 413.75 Weight last 48 hrs Weight 94.801 kg Physical Exam Narrative: awake , alert no distress s1s2 RRR per report Lungs clear per report no edema Data 04/14/23 04:28 04/14/23 04:28 Micro: Microbiology 04/13/23 15:04 Blood Culture - Preliminary Blood SPECIMEN COLLECTED 04/13/23 15:00 Blood Culture - Preliminary Blood SPECIMEN COLLECTED A&P Assessment and plan (1) ESRD (end stage renal disease): Plan 1. End-stage renal disease: On TTS schedule as outpatient last HD was Wednesday, will plan on HD tomorrow. Ultrafiltration as tolerated 2. Sepsis: Possible sources of infection include catheter infection and AV fistula site cellulitis, blood cultures pending. Patient also reported having diarrhea for the last few days. Patient had fever of 102.4 on presentation, WBC scan pending, on Vanc and zosyn 3. Hypertension: Blood pressure elevated on presentation, improved now 4. History of diabetes 5. Anemia: Hemoglobin 10.0 at goal, monitor Patient evaluated using audiovisual cart. Time spent 40 minutes. Consult Attestations Medical Necessity Statement: per medicine team Coding Level of Care Code Acute Code for Chg Fwd Diagnoses ESRD (end stage renal disease) N18.6
[2023-04-14] MEDS: ranolazine (12HR) 500 mg Tablet PO ×2 (09:32→18:26)
[2023-04-14] MEDS: isosorbide mononitrate ER 60 mg Tablet PO ×2 (09:32→18:24)
[2023-04-14] MEDS: metoprolol succinate ER (24 HR) 100 mg Tablet PO (09:32)
[2023-04-14] MEDS: aspirin 81 mg EC Tablet PO (09:33)
[2023-04-14] MEDS: pantoprazole DR 40 mg Tablet PO (09:33)
[2023-04-14] MEDS: tamsulosin 0.4 mg Capsule PO (09:33)
[2023-04-14] MEDS: hyDRALAzine 25 mg Tablet PO ×2 (09:33→18:26)
[2023-04-14] MEDS: cloNIDine 0.1 mg Tablet 0.2 MG PO ×2 (09:33→18:26)
--- NOTE | 2023-04-14 09:40 | ECG_ITS ---
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 Measurements Intervals [place] Rate: 105 P: 29 TX: 218 QRS: -38 QRSD: 129 T: 89 QT: 347 QTc: 459 Interpretive Statements SINUS TACHYCARDIA WITH FIRST DEGREE AV BLOCK LEFT AXIS DEVIATION [QRS AXIS < -30] POSSIBLE RIGHT VENTRICULAR CONDUCTION DELAY [RSR (QR) IN V1/V2] LEFT VENTRICULAR HYPERTROPHY AND ST-T CHANGE [VOLTAGE CRITERIA PLUS ST/T ABNORMALITY] INTERPRETATION BASED ON A DEFAULT AGE OF 40 YEARS Compared to ECG 07/09/2015 18:33:49 First degree AV block now present ST (T wave) deviation now present Sinus rhythm no longer present Electronically Signed On 04-15-2023 0:40:49 ANALOG DESIGN ENGINEER by Cliff Vanessa M.D. [email or web address]
[2023-04-14 09:57] LABS: Hepatitis B Surface AB 65.4 (11.5-1000); Hepatitis B Surface Antigen Non-Reactive (Nonreactive)
[2023-04-14] MEDS: nitroglycerin 0.4 mg sublingual Tablet SUBLINGUAL (09:59)
[2023-04-14] MEDS: clindamycin 600 MG/50 ML PREMIX 100 MG IV (10:03)
--- NOTE | 2023-04-14 10:36 | PC.CHAP ---
Pastoral Care Encounter/Spiritual Assessment Type of Contact [] Declined forestry supervisor visit [] Patient/Family/Request visit [] Outpatient visit [] Follow-up visit [] Physician referral [] Code/Alert [x] Routine visit [] Staff referral [] Actively dying [] Patient sleeping [] Family support [] [] Out of room [] Palliative care [] [] Receiving care in room [] Pre-surgical visit [] Trauma [] Long length of stay [] ICU visit [] Other: Relational/Emotional Strength [x] Patient feels connected with others/family/visitors/staff [] Distress [] Loneliness/isolation [] Abandonment Spirituality of Patient [] Person of Nae [] Attends Restorationism of their Nae [x] Believes in Prayer [] Reads Bible or Restoration materials [] There are Spiritual issues to be addressed Tip Stretcher Interventions [x] Prayer [x] Active listening [] Non-anxious presence [] Spiritual/emotional support [] Crisis/trauma care [] Spiritual counseling [] Bereavement support [] Provided bereavement packet [] Provided Bible/devotional materials [] Provided toy/stuffed animal, coloring book to patient or family member [] Provided Communion [] Anointing/[place] [] Salvation [] Completed spiritual assessment [] Other: Impact on Illness or Injury [] Angry [] Fearful [] Anxious [] Often cries [] Exhaustion [] Unable to work [] Unable to attend oriental orthodox [] Unable to walk/stand [] Unable to read [] Unable to drive [] Unable to eat/drink [] Unable to sleep [] Unable to be with family [] Patient intubated [] Other: Summary Time spent with patient 10 min
[2023-04-14 10:37] LABS: Troponin T (5th) Once 103 ng/L (0-15)
[2023-04-14] MEDS: epoetin alfa 1000 Unit/0.05 mL (ESRD) 20000 UNIT SUBCUT (11:18)
--- NOTE | 2023-04-14 11:48 | PC.HD ---
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 Next dialysis , 04/15. This was also confirmed with patient's primary RN.
[2023-04-14 12:33] LABS: Troponin 5 2HR Delta 3.6 ABS# (0-10)
[2023-04-14 12:34] LABS: Troponin 5 2HR 106.6 ng/L (0-15)
--- NOTE | 2023-04-14 12:56 | PC.SOCIAL ---
IMM Update pg 2 of IMM updated and reviewed w/ patient. Copy provided and copy dated, initialed and placed in chart.
--- NOTE | 2023-04-14 13:09 | P.PN_ITS ---
Subjective Subjective: Seen this morning. At the time of encounter patient started experiencing chest pain which she stated has been happening at home on and off for the last few days. Every time he gets chest pain he takes a sublingual nitro and sometimes has to take 2 of them. EKG was done at bedside which showed sinus tachycardia heart rate 105. No acute ST elevation noted. Patient states he has 7 stents in the heart. Last for stents replaced last year in March. He sees Dr. Sanchez at [facility] cardiology [facility]. He also sees Dr. Gottlieb for vascular surgery regarding his fistula. Fistula site appears slightly red at the suture line. No fluctuance noted. Vitals/I&O/Wt Last Vital Signs Temp 100.4 F H 04/14/23 12:00 Pulse 79 04/14/23 12:00 Resp 18 04/14/23 12:00 BP 118/52 04/14/23 12:00 Pulse Ox 92 04/14/23 12:00 O2 Del Method Room Air 04/14/23 12:00 04/13/23 04/14/23 04/14/23 22:59 06:59 14:59 Intake Total 63.75 / 63.75 600 / 663.75 940 / 940 Output Total 250 / 250 Balance 63.75 / 63.75 350 / 413.75 940 / 940 Weight last 48 hrs Weight 94.801 kg Physical Exam Narrative: Pleasant and cooperative No active signs of fluid overload Insulin pump on his abdomen GCS 15 Nonfocal neuro exam Pleasant and cooperative Nonfocal neuro exam S1, S2 RR Erythema present at suture site on fistula right arm Data 04/14/23 04:28 04/14/23 04:28 Micro: Microbiology 04/13/23 15:04 Blood Culture - Preliminary Blood SPECIMEN COLLECTED 04/13/23 15:00 Blood Culture - Preliminary Blood SPECIMEN COLLECTED A&P Assessment and plan (1) Cellulitis: (2) ESRD (end stage renal disease): (3) Sepsis: Plan #Sepsis related to cellulitis around AV fistula site #End-stage renal disease dialysis Wednesday #Diabetes mellitus, insulin pump dependent #Coronary artery disease, status post PCI x7 stents as per patient #Hypertension #Hyperlipidemia ?Awaiting WBC scan ? Continue vancomycin and Zosyn ? Lactic acid has normalized ? Sepsis was present on admission ? Cautious use of fluids since patient is a dialysis dependent and does not make enough urine ? Continue on home medications clonidine, Plavix, aspirin, atorvastatin, Bumex, Imdur, metoprolol, nifedipine, Ranexa ? Patient sees [place] cardiology Dr. Sanchez [phone] ? Patient sees Dr. Gottlieb for vascular surgery. Most recently had fistula revised 3 weeks ago. ? I did discuss with the patient regarding requesting records from both his [facility] and vascular surgeon and patient verbally consented yes however when cracking unit operator went to obtain consent patient refused to have his records brought over from those facilities. I will temperature to speak to patient again about this. ? Initial troponin 108. Second troponin pending at this time. We do not have any records for the patient. We do not have an echo on file either. He was complaining of chest pain today that relieved with nitro. ? Patient is quite high risk given his multitude of comorbidities with end-stage renal disease, possibly infected fistula, insulin-dependent diabetes mellitus and multivessel coronary artery disease status. ? EKG was reviewed with no acute ST elevation at this time. ? We will consult cardiology -Nephrology consulted for dialysis. ? Patient does have a tunneled dialysis catheter. ? WBC trending down to 12.83, hemoglobin is 10. ? Blood cultures negative to date, -Urine culture pending ? Check echo ? Tylenol for fever ? Clindamycin twice daily 48 hours for toxin suppression. Full code DVT prophylaxis: Heparin Patient is stating that he wants to keep his insulin pump on does not want to use subcutaneous insulin from the hospital Attestations Medical Necessity Statement*: Will require inpatient stay for sepsis Diagnoses Cellulitis L03.90 ESRD (end stage renal disease) N18.6 Sepsis A41.9
--- NOTE | 2023-04-14 13:16 | PC.NURSE ---
Nurse called report to CSU at approximately 1300.
--- NOTE | 2023-04-14 13:21 | USCV_ITS ---
Elliot Flores Age: 72 Gender: M : 1950 Exam Date: 04/14/2023 13:45 Ordering Phys: Gilda Alejandre MD Technologist: Justin Vazquez [place] [facility] [place]ication: chest pain BP: 132 / 83 HR: 86 Rhythm: Sinus Technical Quality: Adequate MEASUREMENTS (Male / Female) Normal Values 2D ECHO LV Diastolic Diameter PLAX 5.3 cm 4.2 - 5.9 / 3.9 - 5.3 cm LV Systolic Diameter PLAX 3.4 cm IVS Diastolic Thickness 1.6 cm 0.6 - 1.0 / 0.6 - 0.9 cm IVS Systolic Thickness 1.6 cm LVPW Diastolic Thickness 1.3 cm 0.6 - 1.0 / 0.6 - 0.9 cm LVPW Systolic Thickness 1.8 cm LVOT Diameter 2.3 cm LV Ejection Fraction 2D Teich 41.0 % LV Ejection Fraction MOD 2C 63.7 % LV Ejection Fraction 2C AL 62.4 % LA Diameter 4.0 cm M-MODE Aortic Annulus Diameter 3.9 cm LA Ao Ratio MM 1.2 MV E Point Septal Separation 1.4 cm DOPPLER AV Peak Velocity 173.0 cm/s LVOT Peak Velocity 91.0 cm/s AV Area Cont Eq vti 2.1 cm squared AV Area Cont Eq pk 2.1 cm squared MV E' Velocity 7.0 cm/s TR Peak Velocity 134.0 cm/s TR Peak Gradient 7.2 mmHg Right Atrial Pressure 3.0 mmHg Pulmonary Artery Systolic Pressu 10.2 mmHg RV Acceleration Time 0.1 s FINDINGS Left Ventricle Technically limited quality echocardiogram because of poor ultrasonic windows. Left ventricle is mildly dilated. LV systolic function is normal with EF 55 to 60%. Accurate assessment of regional wall motion abnormalities is not possible because of poor visualization. Right Ventricle Normal in size and function Right Atrium Normal in size Left Atrium Normal in size Mitral Valve Structurally normal mitral valve. Aortic Valve Grossly normal. No significant stenosis or regurgitation. Tricuspid Valve Mild tricuspid regurgitation. Pulmonary artery systolic pressure is normal. Pulmonic Valve Not well visualized Pericardium Normal Aorta Normal in size IVC Not well visualized CONCLUSIONS Technically limited quality echocardiogram because of poor ultrasonic windows. Left ventricle is mildly dilated. LV systolic function is normal. Mild tricuspid regurgitation No comparison studies are available. Charles Murillo MD (Electronically Signed) Final Date: 15 April 2023 10:31 S
--- NOTE | 2023-04-14 13:30 | ECG_ITS ---
[facility] Test Date: 2023-04-14 Pat Name: Elliot Flores Department: Room: 251 Gender: Male [employer]: : 1950 Requested By: Gilda Alejandre Order Number: [id number] Charlette MD: Cliff Vanessa M.D. Measurements Intervals [place] Rate: 89 P: 31 VT: 230 QRS: -34 QRSD: 118 T: 40 QT: 414 QTc: 505 Interpretive Statements SINUS RHYTHM WITH FIRST DEGREE AV BLOCK WITH OCCASIONAL VENTRICULAR PREMATURE COMPLEXES LEFT AXIS DEVIATION [QRS AXIS < -30] LEFT VENTRICULAR HYPERTROPHY AND ST-T CHANGE [VOLTAGE CRITERIA PLUS ST/T ABNORMALITY] Compared to ECG 04/14/2023 09:58:28 Ventricular premature complex(es) now present Sinus tachycardia no longer present ST (T wave) deviation still present Electronically Signed On 04-15-2023 0:51:37 STATE COMPTROLLER by Cliff Vanessa M.D. [id number]
[2023-04-14 16:52] LABS: Troponin 5 6HR Delta 7.1 ng/L (0-12)
[2023-04-14 16:54] LABS: Troponin 5 6HR 110.1 ng/L (0-15)
[2023-04-14 17:38] LABS: Glucose Point of Care 585 mg/dL (70-110)
--- NOTE | 2023-04-14 17:46 | PC.NURSE ---
Addendum entered by John Estevez RN 04/14/23 18:45: Dr. Alejandre autorized the use of pt's personal insulin pump Original Note: Notified Dr. Alejandre that pt's BS was 585 and that he requests to be able to use his insulin pump as it was taken off this morning and the nurses have not been taking his accuchecks all day or giving him SSI
--- NOTE | 2023-04-14 18:03 | ECG_ITS ---
[facility] Test Date: 2023-04-14 Pat Name: Elliot Flores Department: Room: 112 Gender: Male Clinic Lead: : 1950 Requested By: Gilda Alejandre Order Number: [id number] Charlette MD: Cliff Vanessa M.D. Measurements Intervals [place] Rate: 81 P: 56 DE: 230 QRS: -38 QRSD: 121 T: 71 QT: 431 QTc: 501 Interpretive Statements SINUS RHYTHM WITH FIRST DEGREE AV BLOCK WITH OCCASIONAL ECTOPIC PREMATURE COMPLEXES LEFT AXIS DEVIATION [QRS AXIS < -30] LEFT VENTRICULAR HYPERTROPHY AND ST-T CHANGE [VOLTAGE CRITERIA PLUS ST/T ABNORMALITY] Compared to ECG 04/14/2023 12:47:26 Ventricular premature complex(es) no longer present ST (T wave) deviation still present Electronically Signed On 04-15-2023 0:48:17 MINE SURVEYOR by Cliff Vanessa M.D. [id number]
--- NOTE | 2023-04-14 20:07 | PC.NURSE ---
Sent fax for Medical Records from [facility] in [place], [place] at #[phone] to cover the dates 2019-present as the pt stated taht all his stents and AV fistula were since he had COVID.
--- NOTE | 2023-04-14 21:35 | NM_ITS ---
WS: [id number] NUCLEAR MEDICINE TAGGED WHITE BLOOD CELL SCAN HISTORY: AV fistula site infection COMPARISON: None available. TECHNIQUE: 27.5 mCi of TC 99m Ceretec tagged white blood cells are injected intravenously. Whole body imaging is performed in the anterior and posterior planes. Whole body imaging is performed in the an terior and posterior planes. Normal intense uptake in the liver and spleen as expected. No pulmonary uptake. No soft tissue uptake of any concern. There is no increased uptake at the region of the RIGHT AV fistula. No increased upt opal in the region of the sinuses. IMPRESSION: No site of infection identified by Ceretec study. Normal soft tissue uptake in the region of the AV f istula RIGHT inner arm.
[2023-04-14 21:53] LABS: Glucose Point of Care > 600 mg/dL (70-110)
[2023-04-14 21:53] LABS: Glucose Point of Care > 600 mg/dL (70-110)
[2023-04-14 22:15] LABS: Anion Gap 18.5 (5-19); Blood Urea Nitrogen 33 mg/dL (8-23); Calcium 7.7 mg/dL (8.5-10.5); Carbon Dioxide 24 mmol/L (22-29); Chloride 84 mmol/L (98-107); Osmolality Calculated 296 mOsm/kg (285-295); Potassium 4.5 mmol/L (3.5-5.1); Sodium 122 mmol/L (136-145)
[2023-04-14 22:20] LABS: Glucose 723 mg/dL (65-115)
--- NOTE | 2023-04-14 22:43 | W.PM.EVENTAC ---
Event Note Event Note: Received call regarding severe hyperglycemia with blood glucose being 723, reported possibly declining insulin. Osmolality noted 296. He is awake and alert. Discussed with him, he has not given himself any insulin boluses, until just now when he gave himself 12 units, due to glucose sensor malfunction so he did not know what his glucose levels have been. He is insulin pump is active and he is receiving basal infusion. He does not want to have insulin drip at this time. Discussed with him as his sensor is not functioning properly will for now switch to Accu-Cheks and for now we will add sliding scale insulin, so he will not give himself any additional boluses for the time being but will continue with the basal infusion, currently at 1.8 units/h until midnight, then 1.1 units/h. Understands risk of persistent hyperglycemia, risk of hypoglycemia. Discussed with nursing staff. We will recheck an additional glucose level in 4 hours. Tomorrow, if a new sensor probe can be brought in, he will then double check with his medical team if they are okay with him resuming all insulin via pump once the sensor is working. In case of lack of response and/or worsening glucose or condition he understands that insulin drip may be needed with admission to ICU. Moderate MDM includes amount and/or complexity of data reviewed/ordered [ resulted lab(s)/test(s), ordered lab(s)/test(s) and independent historian] as documented and High MDM includes number and complexity of problems actively addressed during encounter and described risk of complication, morbidity or mortality of management as documented
--- NOTE | 2023-04-14 22:51 | PC.NURSE ---
Dr. York spoke to patient regarding his elevated blood glucose and importance of receiving insulin. Patient dosed himself with 12 units from his implanted device. Dr. York has ordered Moderate SSI with BG checks WM&HS.
[2023-04-15] VITALS (57 sets, daily range): BP systolic 108–163; BP diastolic 54–80; PULSE 54–95; RESP 11–36; TEMP 36.8–37.7; O2SAT 83–97
[2023-04-15 00:59] LABS: Glucose Point of Care > 600 mg/dL (70-110)
[2023-04-15] MEDS: clindamycin 600 MG/50 ML PREMIX 100 MG IV (01:04)
[2023-04-15 01:24] LABS: Basophils % 0.4 %; Eosinophils # 0.1 10^3/uL (0.0-0.8); Eosinophils % 0.9 %; Hematocrit 28.2 % (37-53); Lymphocytes # 0.6 10^3/uL (0.8-4.8); Lymphocytes % 5.9 %; Mean Corpuscular HGB Conc 33.7 g/dL (30-55); Mean Corpuscular Hemoglobin 33.5 pg (27-33); Mean Corpuscular Volume 99.3 fl (82-101); Mean Platelet Volume 10.2 fL (7.4-10.4); Monocytes # 0.6 10^3/uL (0.2-0.9); Monocytes % 5.7 %; Neutrophils # 9.34 10^3/uL (1.8-7.7); Neutrophils % 86.7 %; Nucleated Red Blood Cells % 0 %; Platelet Count 276 10^3/cmm (157-399); Red Blood Count 2.84 10^6/uL (3.85-5.65); Red Cell Distribution Width 13.2 % (12.1-15.1); White Blood Count 10.77 10^3/uL (3.29-11.43)
[2023-04-15 01:38] LABS: Anion Gap 20.2 (5-19); Blood Urea Nitrogen 34 mg/dL (8-23); Carbon Dioxide 23 mmol/L (22-29); Chloride 84 mmol/L (98-107); Osmolality Calculated 297 mOsm/kg (285-295); Potassium 4.2 mmol/L (3.5-5.1); Sodium 123 mmol/L (136-145)
[2023-04-15 01:39] LABS: Glucose 708 mg/dL (65-115)
[2023-04-15] MEDS: piperacillin-tazobactam 3.375 GM in sodium chloride 0.9% (plus) 50 ML IV ×2 (02:05→17:56)
[2023-04-15] MEDS: insulin lispro 100 unit/1 mL 16 UNIT SUBCUT ×2 (02:19→06:43)
--- NOTE | 2023-04-15 02:28 | PC.NURSE ---
patient BG would not register on the glucometer, orders for stat bmp was put in, BG was 723, Dr nance notified and came and talked with patient. 12 units was given from patients insulin pump. BG was again taken [address] order and was not registering on glucometer. Lab notified, BG came back 708 Dr notified and wanted to take patient to icu for insulin gtt. Patient refused, 16 units humalog was administered per dr order. BG will be checked in 2 hours. Patient states that if BG does not go down in 2 hours he will go to icu unit and have the insulin gtt.
[2023-04-15 04:14] LABS: Glucose Point of Care 592 mg/dL (70-110)
[2023-04-15 04:14] LABS: Glucose Point of Care 587 mg/dL (70-110)
--- NOTE | 2023-04-15 04:23 | PC.NURSE ---
patient BG 592, Dr nance notified and ordered 16 units per sliding scale insulin.
[2023-04-15 04:34] LABS: Anion Gap 17.9 (5-19); Blood Urea Nitrogen 35 mg/dL (8-23); Carbon Dioxide 25 mmol/L (22-29); Chloride 85 mmol/L (98-107); Magnesium 1.8 mg/dL (1.7-2.3); Osmolality Calculated 295 mOsm/kg (285-295); Potassium 3.9 mmol/L (3.5-5.1); Sodium 124 mmol/L (136-145)
[2023-04-15 04:38] LABS: Glucose 626 mg/dL (65-115)
--- NOTE | 2023-04-15 04:47 | PC.NURSE ---
Patient was updated that the dr ordered 16 units of insulin for BG of 592, Patient stated that he gave himself 2 bolus of 10 units himself through personal insulin pump. Patient educated on the use of personal insulin pump, reinforcement may be needed.
[2023-04-15] MEDS: heparin 5,000 unit/mL INJ 1 mL 5000 UNIT SUBCUT ×2 (05:48→17:46)
[2023-04-15 06:01] LABS: Glucose Point of Care 514 mg/dL (70-110)
--- NOTE | 2023-04-15 06:46 | PM.PN ---
Subjective Subjective: no ew complaints Medications: Reviewed: Yes Vitals/I&O/Wt Last Vital Signs Temp 99.9 F H 04/15/23 03:58 Pulse 78 04/15/23 03:58 Resp 12 04/15/23 03:58 BP 140/71 04/15/23 03:58 Pulse Ox 95 04/15/23 03:58 O2 Del Method Room Air 04/15/23 03:58 04/14/23 04/14/23 04/15/23 14:59 22:59 06:59 Intake Total 990 / 990 480 / 1470 150 / 1620 Balance 990 / 990 480 / 1470 150 / 1620 Weight last 48 hrs Weight 94.801 kg Physical Exam Narrative: awake , alert no distress s1s2 RRR per report Lungs clear per report no edema Data 04/15/23 01:10 04/15/23 03:38 Micro: Microbiology 04/13/23 15:00 Blood Culture - Preliminary Blood NEGATIVE TO DATE 04/13/23 15:04 Blood Culture - Preliminary Blood NEGATIVE TO DATE A&P Assessment and plan (1) ESRD (end stage renal disease): Plan 1. End-stage renal disease: On TTS schedule as outpatient last HD was Wednesday, , plan for HD today Ultrafiltration as tolerated , 2. Sepsis: unclear source of infection . Patient also reported having diarrhea for the last few days. Patient had fever of 102.4 on presentation,has low grade temps now WBC scan- normal uptake @ AVF site , on Vanc and zosyn - Blood cultures neg so far , 3. Hypertension: Blood pressure elevated on presentation, improved now 4. History of diabetes 5. Anemia: Hemoglobin 9.5 at goal, monitor Patient evaluated using audiovisual cart. Time spent 20 minutes. Attestations Medical Necessity Statement*: per medicine team Coding Level of Care Code Acute Code for Chg Fwd Diagnoses ESRD (end stage renal disease) N18.6
[2023-04-15 07:06] LABS: Glucose Point of Care 486 mg/dL (70-110)
[2023-04-15 07:39] LABS: Glucose Point of Care 457 mg/dL (70-110)
--- NOTE | 2023-04-15 07:41 | P.CONIM_ITS ---
Providers/Reason For Consult Consulting Physician/Specialty*: Charles Murillo MD/ Cardiology Reason for Consult*: Chest pain Requesting Physician: Dr Alejandre Attending Physician: Gilda Alejandre MD Primary Care Provider: Joshua West MD History of Present Illness History of Present Illness Elliot Flores Jr is a 72 year old male with past medical history of CAD with multiple stents presented with possible infection and sepsis. Cardiology was consulted as patient had complained of chest discomfort. According to patient he has multiple stents and is on Ranexa. He does get chronic stable anginal symptoms and current episode was also similar to that. His troponins are elevated however they have not trended up significantly. Echo shows normal LV systolic function. Review of Systems Const: Reports: fever(s) and chills Eyes: Denies: change in vision ENMT: Denies: throat pain Card: Denies: chest pain Resp: Reports: dyspnea GI: Denies: abdominal pain : Denies: flank pain Musc: Denies: neck pain Skin/Breast: Reports: rash Neuro: Denies: headache(s) Psych: Reports: anxiety Medications/Allergies Home Medications Medication Instructions Recorded Confirmed Last Taken Type Diabetic shoes with 3 inserts #1 ea 12/04/22 04/13/23 Unknown Rx acetaminophen 650 mg 650 mg PO Q12H PRN Pain 04/13/23 04/13/23 Unknown History tablet,extended release ascorbic acid (vitamin C) 500 mg 500 mg PO DAILY 04/13/23 04/13/23 Unknown History tablet (Vitamin C) aspirin 81 mg tablet,delayed 81 mg PO DAILY 04/13/23 04/13/23 Unknown History release atorvastatin 80 mg tablet 80 mg PO DAILY 04/13/23 04/13/23 Unknown History bumetanide 1 mg tablet 1 mg PO DAILY 04/13/23 04/13/23 Unknown History calcium carbonate 200 mg calcium 400 mg PO QID PRN unknown 04/13/23 04/13/23 Unknown History (500 mg) chewable tablet (Tums) cholecalciferol (vitamin D3) 125 125 mcg PO DAILY 04/13/23 04/13/23 Unknown History mcg (5,000 unit) tablet (Vitamin D3) clonidine HCl 0.1 mg tablet 0.2 mg PO TID 04/13/23 04/13/23 Unknown History clopidogrel 75 mg tablet 75 mg PO DAILY 04/13/23 04/13/23 Unknown History cyanocobalamin (vitamin B-12) 1,000 mcg PO DAILY 04/13/23 04/13/23 Unknown History 1,000 mcg tablet (Vitamin B-12) finasteride 5 mg tablet 5 mg PO DAILY 04/13/23 04/13/23 Unknown History hydralazine 25 mg tablet 25 mg PO BID 04/13/23 04/13/23 Unknown History hydrocodone 5 mg-acetaminophen 325 1 tab PO Q4H PRN Pain 04/13/23 04/13/23 Un known History mg tablet insulin aspart U-100 100 unit/mL 5 - 10 unit SUBCUT TID 04/13/23 04/13/23 Unknown History subcutaneous solution (Novolog U-100 Insulin aspart) isosorbide mononitrate 60 mg 60 mg PO BID 04/13/23 04/13/23 Unknown History tablet,extended release 24 hr melatonin 3 mg tablet 3 mg PO BEDTIME 04/13/23 04/13/23 Unknown History metoprolol succinate 100 mg 100 mg PO DAILY 04/13/23 04/13/23 Unknown History tablet,extended release 24 hr nifedipine 60 mg tablet,extended 60 mg PO DAILY 04/13/23 04/13/23 04/13/23 03:00 History release nifedipine 90 mg tablet,extended 90 mg PO DAILY 04/13/23 04/13/23 04/09/23 History release nitroglycerin 0.4 mg sublingual 0.4 mg sublingual Q5M PRN Chest 04/13/23 04/13/23 Unknown History tablet (Nitrostat) Pain ondansetron 4 mg disintegrating 4 mg PO Q6H PRN Nausea And Vomiting 04/13/23 04/13/23 Unknown History tablet pantoprazole 40 mg tablet,delayed 40 mg PO BEDTIME 04/13/23 04/13/23 Unknown History release ranolazine 500 mg tablet,extended 500 mg PO BID 04/13/23 04/13/23 Unknown History release,12 hr tamsulosin 0.4 mg capsule 0.4 mg PO DAILY 04/13/23 04/13/23 Unknown History Allergies Allergy/AdvReac Type Severity Reaction Status Date / Time No Known Allergies Allergy Verified 04/13/23 15:02 Current Medications Generic Name Dose Route Start Last Admin Trade Name Freq PRN Reason Stop Dose Admin Acetaminophen 650 mg 04/14/23 04:08 04/14/23 13:48 Acetaminophen 325 Mg Tablet PO 650 mg Q12H PRN Administration mild pain or fever Aspirin 81 mg 04/14/23 09:00 04/14/23 09:33 Aspirin 81 Mg Ec Tablet PO 81 mg DAILY MELVA Administration Clonidine HCl 0.2 mg 04/14/23 09:00 04/14/23 18:26 Clonidine 0.1 Mg Tablet PO 0.2 mg BID MELVA Administration Heparin Sodium (Porcine) 5,000 unit 04/13/23 17:00 04/15/23 05:48 Heparin 5,000 Unit/Ml Inj 1 Ml SUBCUT 5,000 unit Q12H MELVA Administration Hydralazine HCl 25 mg 04/14/23 09:00 04/14/23 18:26 Hydralazine 25 Mg Tablet PO 25 mg BID MELVA Administration Piperacillin Sod/Tazobactam 50 mls @ 12.5 mls/hr 04/13/23 18:00 04/15/23 06:08 Sod 3.375 gm/ Sodium Chloride IV Infused Q8H MELVA Infusion Protocol As Directed Clindamycin HCl/Dextrose 600 mg in 50 mls @ 100 mls/hr 04/13/23 22:00 04/15/23 01:56 Cleocin IV Infused Q12H MELVA Infusion Protocol Isosorbide Mononitrate 60 mg 04/14/23 09:00 04/14/23 18:24 Isosorbide Mononitrate Er 60 Mg Tablet PO 60 mg BID MELVA Administration Metoprolol Succinate 100 mg 04/14/23 09:00 04/14/23 09:32 Metoprolol Succinate Er (24 Hr) 100 Mg Tablet PO 100 mg DAILY MELVA Administration Pantoprazole Sodium 40 mg 04/14/23 09:00 04/14/23 09:[address] 40 Mg Tablet PO 40 mg DAILY MELVA Administration Ranolazine 500 mg 04/14/23 09:00 04/14/23 18:26 Ranolazine (12hr) 500 Mg Tablet PO 500 mg BID MELVA Administration Tamsulosin HCl 0.4 mg 04/14/23 09:00 04/14/23 09:33 Tamsulosin 0.4 Mg Capsule PO 0.4 mg DAILY MELVA Administration PFSH Acute PFSH: Medical History CAD (coronary artery disease) ESRD (end stage renal disease) Hyperlipidemia Hypertension Migraines Type 2 diabetes mellitus Surgical History H/O hernia repair Stented coronary artery Social History Substance/Drug Use: never Vitals/I&O/Wt Last Vital Signs Temp 99.9 F H 04/15/23 03:58 Pulse 78 04/15/23 03:58 Resp 12 04/15/23 03:58 BP 140/71 04/15/23 03:58 Pulse Ox 95 04/15/23 03:58 O2 Del Method Room Air 04/15/23 03:58 04/14/23 04/15/23 04/15/23 22:59 06:59 14:59 Intake Total 480 / 1470 150 / 1620 Balance 480 / 1470 150 / 1620 Weight last 48 hrs Weight 209 lb Physical Exam Narrative: GENERAL: Patient is alert, awake and oriented x3. [] NECK: No jugular vein distension. [] HEENT: No cyanosis. No icterus. No pallor. [] HEART: Regular S1 and S2. No murmur, rub or gallop. [] LUNGS: Clear to auscultate bilaterally. [] CENTRAL NERVOUS SYSTEM: Grossly nonfocal. [] EXTREMITIES: Lower extremities with 1+ edema bilaterally. Data 04/15/23 01:10 04/15/23 03:38 Micro: Microbiology 04/13/23 15:00 Blood Culture - Preliminary Blood NEGATIVE TO DATE 04/13/23 15:04 Blood Culture - Preliminary Blood NEGATIVE TO DATE A&P Assessment and plan (1) CAD (coronary artery disease): (2) Type 2 diabetes mellitus: (3) Hypertension: (4) Sepsis: (5) Cellulitis: (6) ESRD (end stage renal disease): Plan According to patient's history chest pain symptoms are chronic and has stable angina. He is on Ranexa. Given no significant uptrend of troponins (elevated secondary to demand ischemia/ESRD), normal LV function and stable anginal symptoms per his history, we will medically manage him at this time. EKG shows normal sinus rhythm with first degree AV block and LVH changes without significant ST T wave abnormalities If symptoms worsen in future, can consider ischemic work up. Thank you for involving us with care of this patient. Please call with question. Consult Attestations Medical Necessity Statement: Care expected to cross 2 midnights. Coding Level of Care Code Acute Code for g Fwd Diagnoses CAD (coronary artery disease) I25.10 Type 2 diabetes mellitus E11.9 Hypertension I10 Sepsis A41.9 Cellulitis L03.90 ESRD (end stage renal disease) N18.6
[2023-04-15] MEDS: insulin lispro 100 unit/1 mL SUBCUT (08:10)
[2023-04-15] MEDS: cloNIDine 0.1 mg Tablet 0.2 MG PO (08:10)
[2023-04-15] MEDS: aspirin 81 mg EC Tablet PO (08:10)
[2023-04-15] MEDS: ranolazine (12HR) 500 mg Tablet PO ×2 (08:10→17:47)
[2023-04-15] MEDS: pantoprazole DR 40 mg Tablet PO (08:11)
[2023-04-15] MEDS: tamsulosin 0.4 mg Capsule PO (08:11)
[2023-04-15] MEDS: metoprolol succinate ER (24 HR) 100 mg Tablet PO (08:11)
[2023-04-15] MEDS: isosorbide mononitrate ER 60 mg Tablet PO ×2 (08:11→17:51)
[2023-04-15] MEDS: hyDRALAzine 25 mg Tablet PO (08:11)
[2023-04-15] MEDS: heparin, porcine 1,000 unit/mL INJ 10 mL 10000 UNIT INTRACATH (09:21)
[2023-04-15] MEDS: heparin, porcine 1,000 unit/mL INJ 10 mL 1000 UNIT IV (09:21)
--- NOTE | 2023-04-15 09:59 | PC.NURSE ---
patient off floor for dialysis
[2023-04-15 10:10] LABS: Glucose Point of Care 223 mg/dL (70-110)
--- NOTE | 2023-04-15 10:18 | PC.CHAP ---
Pastoral Care Encounter/Spiritual Assessment Type of Contact [] Declined crossing watchman visit [] Patient/Family/Request visit [] Outpatient visit [] Follow-up visit [] Physician referral [] Code/Alert [x] Routine visit [] Staff referral [] Actively dying [] Patient sleeping [] Family support [] [] Out of room [] Palliative care [] [] Receiving care in room [] Pre-surgical visit [] Trauma [] Long length of stay [] ICU visit [] Other: Relational/Emotional Strength [] Patient feels connected with others/family/visitors/staff [] Distress [] Loneliness/isolation [] Abandonment Spirituality of Patient [] Person of Nae [] Attends Episcopal of their Nae [] Believes in Prayer [] Reads Bible or Nondenominational materials [] There are Spiritual issues to be addressed Grinder Interventions [] Prayer [] Active listening [] Non-anxious presence [] Spiritual/emotional support [] Crisis/trauma care [] Spiritual counseling [] Bereavement support [] Provided bereavement packet [] Provided Bible/devotional materials [] Provided toy/stuffed animal, coloring book to patient or family member [] Provided Communion [] Anointing/[place] [] Salvation [] Completed spiritual assessment [] Other: Impact on Illness or Injury [] Angry [] Fearful [] Anxious [] Often cries [] Exhaustion [] Unable to work [] Unable to attend sikh [] Unable to walk/stand [] Unable to read [] Unable to drive [] Unable to eat/drink [] Unable to sleep [] Unable to be with family [] Patient intubated [] Other: Summary senior unable to communicate staff Time spent with patient 5 mins
[2023-04-15 11:25] LABS: Thyroid Stimulating Hormone 0.55 uIU/mL (0.27-4.20)
[2023-04-15 11:36] LABS: Procalcitonin 1.12 ng/mL (0-0.5); Vitamin B12 1396 pg/mL (232-1245)
[2023-04-15] MEDS: albumin 12.5 GM/50 ML VIAL IV ×2 (11:37→11:38)
[2023-04-15 11:47] LABS: Iron 19 ug/dL (59-158); Percent Saturation 18.8 % (20-50); Total Iron Binding Capacity 101 mcg/dl; Unsaturated Iron Binding 82 ug/dL (112-347)
--- NOTE | 2023-04-15 13:30 | PM.PN ---
Subjective Subjective: Overnight patient's blood sugars went up to 700. Overnight events appreciated. Hospital course, labs appreciated. Today morning seen while patient is getting hemodialysis. Tmax 99.9 Fahrenheit. Patient continues to use his insulin, by himself. Did receive insulin by the nurse and ended up bolusing insulin by himself as well. Again counseled the patient in detail against doing so as that puts him at a higher risk of possibility of severe hypoglycemia. Blood was appreciated.. Vitals/I&O/Wt Last Vital Signs Temp 99.9 F H 04/15/23 03:58 Pulse 74 04/15/23 09:05 Resp 27 H 04/15/23 09:05 BP 125/57 04/15/23 09:20 Pulse Ox 97 04/15/23 09:05 O2 Del Method Room Air 04/15/23 03:58 04/14/23 04/15/23 04/15/23 22:59 06:59 14:59 Intake Total 480 / 1470 390 / 1860 121 / 121 Balance 480 / 1470 390 / 1860 121 / 121 Weight last 48 hrs Weight 94.801 kg Physical Exam Narrative: Pleasant and cooperative No active signs of fluid overload Insulin pump on his abdomen GCS 15 Nonfocal neuro exam Pleasant and cooperative Nonfocal neuro exam S1, S2 RR Erythema present at suture site on fistula right arm Data 04/15/23 01:10 04/15/23 03:38 Micro: Microbiology 04/14/23 13:45 Urine Culture - Preliminary Urine,Clean Catch 04/13/23 15:00 Blood Culture - Preliminary Blood NEGATIVE TO DATE 04/13/23 15:04 Blood Culture - Preliminary Blood NEGATIVE TO DATE A&P Assessment and plan (1) Cellulitis: (2) ESRD (end stage renal disease): (3) Sepsis: (4) CAD (coronary artery disease): (5) Type 2 diabetes mellitus: (6) Hypertension: Plan #Sepsis related to cellulitis around AV fistula site #End-stage renal disease dialysis Wednesday #Diabetes mellitus, insulin pump dependent #Coronary artery disease, status post PCI x7 stents as per patient #Hypertension #Hyperlipidemia ?Awaiting WBC scan ? Continue vancomycin and Zosyn ? Lactic acid has normalized ? Sepsis was present on admission ? Cautious use of fluids since patient is a dialysis dependent and does not make enough urine ? Continue on home medications clonidine, Plavix, aspirin, atorvastatin, Bumex, Imdur, metoprolol, nifedipine, Ranexa ? Patient sees [facility] cardiology Dr. Sanchez [phone] ? Patient sees Dr. Gottlieb for vascular surgery. Most recently had fistula revised 3 weeks ago. ? I did discuss with the patient regarding requesting records from both his vp public relations and vascular surgeon and patient verbally consented yes however when community outreach director went to obtain consent patient refused to have his records brought over from those facilities. I will temperature to speak to patient again about this. ? Initial troponin 108. Second troponin pending at this time. We do not have any records for the patient. We do not have an echo on file either. He was complaining of chest pain today that relieved with nitro. ? Patient is quite high risk given his multitude of comorbidities with end-stage renal disease, possibly infected fistula, insulin-dependent diabetes mellitus and multivessel coronary artery disease status. ? EKG was reviewed with no acute ST elevation at this time. ? We will consult cardiology -Nephrology consulted for dialysis. ? Patient does have a tunneled dialysis catheter. ? WBC trending down to 12.83, hemoglobin is 10. ? Blood cultures negative to date, -Urine culture pending ? Check echo ? Tylenol for fever ? Clindamycin twice daily 48 hours for toxin suppression. Plan for the day: WBC scan negative. Continue with IV vancomycin and Zosyn. Stop IV clindamycin. Follow-up cultures. Respiratory viral panel. Repeat procalcitonin. Patient did have an episode of chest pain last night. Plan for cardiology consultation. Continue with aspirin, restart home dose of Plavix and statin. Echocardiogram appreciated. Restart other home medications at home dose. Blood pressure well controlled. Continue with home antihypertensives. Monitor blood sugars. Start patient on 10 units of Lantus every morning. Switch to renal diabetic diet. Full code DVT prophylaxis: Heparin Patient is stating that he wants to keep his insulin pump on does not want to use subcutaneous insulin from the hospital Attestations Medical Necessity Statement*: Patient requires further hospitalization for management of sepsis in setting of cellulitis around AV fistula site, Renal disease on hemodialysis, unstable angina in a patient with history of CAD post PCI Diagnoses Cellulitis L03.90 ESRD (end stage renal disease) N18.6 Sepsis A41.9 CAD (coronary artery disease) I25.10 Type 2 diabetes mellitus E11.9 Hypertension I10
[2023-04-15 13:48] LABS: Adenovirus Not Detected (NOT DETECT); Chlamydia Pneumoniae Not Detected (NOT DETECT); Coronavirus 229E,HKU1,NL63,OC4 Not Detected (NOT DETECT); Human Metapneumovirus Not Detected (NOT DETECT); Human Rhinovirus/Enterovirus Not Detected (NOT DETECT); Influenza A Not Detected (NOT DETECT); Influenza A H1 Not Detected (NOT DETECT); Influenza A H1-2009 Not Detected (NOT DETECT); Influenza A H3 Not Detected (NOT DETECT); Influenza B Not Detected (NOT DETECT); Mycoplasma Pneumoniae Not Detected (NOT DETECT); Parainfluenza Virus Type 1 Not Detected (NOT DETECT); Parainfluenza Virus Type 2 Not Detected (NOT DETECT); Parainfluenza Virus Type 3 Not Detected (NOT DETECT); Parainfluenza Virus Type 4 Not Detected (NOT DETECT); Respiratory Syncytial Virus A Not Detected (NOT DETECT); Respiratory Syncytial Virus B Not Detected (NOT DETECT); SARS-COV-2 Not Detected (NOT DETECT)
[2023-04-15] MEDS: vancomycin 1,000 MG in sodium chloride 0.9% 250 ML 250 MG IV (15:16)
--- NOTE | 2023-04-15 17:39 | PC.NURSE ---
Patient refuses to take our insulin at this time. Current blood sugar is 241. Patient is giving himself 10 units off of his insulin pump. Nurse told him we would prefer to be able to manage his insulin while he is here but he still refuses.
[2023-04-15 19:39] LABS: Glucose Point of Care 299 mg/dL (70-110)
[2023-04-15 21:22] LABS: Glucose Point of Care 284 mg/dL (70-110)
[2023-04-16] VITALS (10 sets, daily range): BP systolic 114–147; BP diastolic 50–93; PULSE 60–71; RESP 19–28; TEMP 36.4–36.9; O2SAT 93–98
--- NOTE | 2023-04-16 00:06 | PC.NURSE ---
At 21:16 pt BG was 284 per glucometer. Patient is to give himself 10 units with personal insulin pump, RN stated that we would like to manage BG with hospital sliding scale insulin but patient refused.
[2023-04-16] MEDS: piperacillin-tazobactam 3.375 GM in sodium chloride 0.9% (plus) 50 ML IV ×3 (01:51→17:38)
--- NOTE | 2023-04-16 03:17 | PC.NURSE ---
Patient stated bg was 230, On hospital glucometer it registered as 225. Patient stated he was going to give himself 10 units of insulin, RN educated the patient on possibility of becoming hypoglycemic. Patient stated 10 units will not bring my BG down that low .
[2023-04-16 03:18] LABS: Glucose Point of Care 225 mg/dL (70-110)
--- NOTE | 2023-04-16 04:49 | PC.NURSE ---
At 1930 04/15/23 patient was confused and did not know where he was. RN and CONTINUOUS IMPROVEMENT ENGINEER reoriented patient to place and situation multiple times.
[2023-04-16 05:03] LABS: Basophils # 0.1 10^3/uL (0.0-0.1); Basophils % 0.7 %; Eosinophils # 0.7 10^3/uL (0.0-0.8); Eosinophils % 8.5 %; Hematocrit 29.1 % (37-53); Mean Corpuscular HGB Conc 32.3 g/dL (30-55); Mean Corpuscular Hemoglobin 32.4 pg (27-33); Mean Corpuscular Volume 100.3 fl (82-101); Mean Platelet Volume 10.4 fL (7.4-10.4); Monocytes # 0.9 10^3/uL (0.2-0.9); Monocytes % 11.4 %; Neutrophils # 5.55 10^3/uL (1.8-7.7); Nucleated Red Blood Cells % 0 %; Platelet Count 314 10^3/cmm (157-399); Red Cell Distribution Width 13.4 % (12.1-15.1); White Blood Count 8.27 10^3/uL (3.29-11.43)
[2023-04-16] MEDS: heparin 5,000 unit/mL INJ 1 mL 5000 UNIT SUBCUT ×2 (05:25→17:30)
[2023-04-16 05:34] LABS: Chol HDL Ratio 4.53 mg/dL (1.0-5.00); Cholesterol 145 mg/dL (0-200); HDL Cholesterol 32 mg/dL (60-100); LDL Cholesterol Calculated 70 mg/dL (50-129); Triglycerides 215 mg/dL (0-150); VLDL Cholestrol Calculation 43 mg/dL (0-30)
[2023-04-16 05:35] LABS: Estmated Average Glucose 223; Hemoglobin A1C 9.4 % (4.0-6.0)
[2023-04-16 05:38] LABS: Alanine Aminotransferase 10 U/L (0-41); Albumin Level 3.5 g/dL (3.5-5.2); Alkaline Phosphatase 69 U/L (40-130); Anion Gap 19.7 (5-19); Aspartate Amino Transferase 14 U/L (0-40); Blood Urea Nitrogen 26 mg/dL (8-23); Calcium 8.7 mg/dL (8.5-10.5); Carbon Dioxide 23 mmol/L (22-29); Chloride 95 mmol/L (98-107); Globulin 2.6 g/dL (1.3-4.6); Glucose 236 mg/dL (65-115); Osmolality Calculated 290 mOsm/kg (285-295); Potassium 3.7 mmol/L (3.5-5.1); Sodium 134 mmol/L (136-145); Total Bilirubin 0.5 mg/dL (0.15-1.2); Total Protein 6.1 g/dL (6.6-8.7)
[2023-04-16 05:42] LABS: Folate Level 9.6 ng/mL (4.5-32.2)
[2023-04-16 05:46] LABS: Vancomycin Random 13.4 ug/mL (20.0-40.0)
[2023-04-16 06:31] LABS: Glucose Point of Care 216 mg/dL (70-110)
[2023-04-16] MEDS: atorvastatin 40 mg Tablet 80 MG PO (09:14)
[2023-04-16] MEDS: tamsulosin 0.4 mg Capsule PO (09:14)
[2023-04-16] MEDS: ranolazine (12HR) 500 mg Tablet PO ×2 (09:14→17:29)
[2023-04-16] MEDS: isosorbide mononitrate ER 60 mg Tablet PO ×2 (09:15→17:29)
[2023-04-16] MEDS: clopidogrel 75 mg Tablet PO (09:15)
[2023-04-16] MEDS: finasteride 5 mg Tablet PO (09:16)
[2023-04-16] MEDS: metoprolol succinate ER (24 HR) 100 mg Tablet PO (09:17)
[2023-04-16] MEDS: pantoprazole DR 40 mg Tablet PO (09:17)
[2023-04-16] MEDS: aspirin 81 mg EC Tablet PO (09:17)
--- NOTE | 2023-04-16 10:56 | PM.PN ---
Subjective Subjective: s/p HD yesterday Medications: Reviewed: Yes Vitals/I&O/Wt Last Vital Signs Temp 98.0 F 04/16/23 08:00 Pulse 69 04/16/23 08:00 Resp 19 H 04/16/23 08:00 BP 146/93 04/16/23 08:00 Pulse Ox 95 04/16/23 08:00 O2 Del Method Room Air 04/16/23 08:00 04/15/23 04/16/23 04/16/23 22:59 06:59 14:59 Intake Total 1569 / 1980 830 / 2811 290 / 290 Output Total 3511 / 3511 Balance -1941 / -1530 830 / -700 290 / 290 Weight last 48 hrs Weight 99.3 kg Physical Exam Narrative: awake , alert no distress s1s2 RRR per report Lungs clear per report no edema Data 04/16/23 04:25 04/16/23 04:25 Micro: Microbiology 04/14/23 13:45 Urine Culture - Preliminary Urine,Clean Catch A&P Assessment and plan (1) ESRD (end stage renal disease): Plan 1. End-stage renal disease: On TTS schedule as outpatient last HD was Wednesday, , plan for HD today Ultrafiltration as tolerated , 2. Sepsis: Patient had fever of 102.4 on presentation, WBC scan- normal uptake @ AVF site , on Vanc and zosyn - Blood cultures neg so far -Most likely source is tunneled catheter, though blood cultures are negative. Would consider replacing tunneled catheter, benefits from ID opinion -Consider transfer for higher level of care to get ID opinion and vascular surgery evaluation for aVF (recent revision/superficialization). , 3. Hypertension: Blood pressure elevated on presentation, improved now 4. History of diabetes 5. Anemia: Hemoglobin 9.4 at goal, monitor Patient evaluated using audiovisual cart. Time spent 20 minutes. Attestations Medical Necessity Statement*: per medicine team Coding Level of Care Code Acute Code for Chg Fwd Diagnoses ESRD (end stage renal disease) N18.6
[2023-04-16 11:21] LABS: Glucose Point of Care 215 mg/dL (70-110)
--- NOTE | 2023-04-16 12:54 | PC.NURSE ---
pt use his own insulin pump and reported given 20 units from his pump. BG now is 194 after giving the insulin.
[2023-04-16] MEDS: vancomycin 1,000 MG in sodium chloride 0.9% 250 ML 250 MG IV (12:55)
--- NOTE | 2023-04-16 14:04 | PM.PN ---
Subjective Subjective: seen today pt afebrile last 24 hours. last known elevated temp apr 15 4 am 99.9 bcx ntd, ucx neg doing well no chest pain episode overnight Vitals/I&O/Wt Last Vital Signs Temp 97.8 F 04/16/23 12:00 Pulse 70 04/16/23 12:00 Resp 19 H 04/16/23 12:00 BP 126/66 04/16/23 12:00 Pulse Ox 95 04/16/23 12:00 O2 Del Method Room Air 04/16/23 12:00 04/15/23 04/16/23 04/16/23 22:59 06:59 14:59 Intake Total 0 / 1981 830 / 2811 526 / 526 Output Total 3511 / 3511 Balance -1941 / -1530 830 / -700 526 / 526 Weight last 48 hrs Weight 99.3 kg Physical Exam Narrative: Pleasant and cooperative No active signs of fluid overload Insulin pump on his abdomen GCS 15 Nonfocal neuro exam Pleasant and cooperative Nonfocal neuro exam S1, S2 RR Erythema present at suture site on fistula right arm but improved since admission Data 04/16/23 04:25 04/16/23 04:25 Micro: Microbiology 04/14/23 13:45 Urine Culture - Final Urine,Clean Catch A&P Assessment and plan (1) Cellulitis: (2) ESRD (end stage renal disease): (3) Sepsis: (4) CAD (coronary artery disease): (5) Type 2 diabetes mellitus: (6) Hypertension: (7) Fever: Plan #Sepsis related to cellulitis around AV fistula site #Fever #End-stage renal disease dialysis Wednesday #Diabetes mellitus, insulin pump dependent #Coronary artery disease, status post PCI x7 stents as per patient #Hypertension #Hyperlipidemia ? Nuclear WBC scan negative. ? Continue vancomycin and Zosyn ? Lactic acid has normalized ? Sepsis was present on admission ? Cautious use of fluids since patient is a dialysis dependent and does not make enough urine ? Continue on home medications clonidine, Plavix, aspirin, atorvastatin, Bumex, Imdur, metoprolol, nifedipine, Ranexa ? Patient sees [facility] cardiology Dr. Sanchez [phone] ? Patient sees Dr. Gottlieb for vascular surgery. Most recently had fistula revised 3 weeks ago. ? I did discuss with the patient regarding requesting records from both his intelligence officer basic and vascular surgeon and patient verbally consented yes however when community organization worker went to obtain consent patient refused to have his records brought over from those facilities. I will temperature to speak to patient again about this. ? Initial troponin 108 and flat. Delta troponin negative ? Patient is quite high risk given his multitude of comorbidities with end-stage renal disease, possibly infected fistula, insulin-dependent diabetes mellitus and multivessel coronary artery disease status. ? EKG was reviewed with no acute ST elevation at this time. ? Cardiology consulted. Appreciate recommendations. -Nephrology consulted for dialysis. ? Patient does have a tunneled dialysis catheter. ? WBC has normalized. ? Blood cultures negative to date, -Urine culture negative ? Echo completed. No acute wall motion abnormality. Poor study. EF normal 55 to 60%. ? Tylenol for fever ? Clindamycin twice daily 48 hours for toxin suppression. ? Patient has been afebrile in the last 24 hours. Erythema and fistula has improved as well. Blood cultures are negative to date. Opinion from ID would be beneficial at this point however there is nobody available commissions analyst in our hospital. Patient voiced that he would like to be transferred to [facility] to [facility] as that is where most of his medical care takes place. I have called them and they do not have infectious disease present as well over the weekend. ? Had a discussion with patient that since he has been afebrile in the last 24 hours it may have been that her source of infection was a superficial cellulitis at fistula suture site. We will continue to monitor in the hospital. If patient spikes another fever another source may be possibly tunneled dialysis catheter at which point it may have to be removed. ? I will continue antibiotics for now. Full code DVT prophylaxis: Heparin Patient is stating that he wants to keep his insulin pump on does not want to use subcutaneous insulin from the hospital Attestations Medical Necessity Statement*: Continue to monitor in the hospital and treat infection. Diagnoses Cellulitis L03.90 ESRD (end stage renal disease) N18.6 Sepsis A41.9 CAD (coronary artery disease) I25.10 Type 2 diabetes mellitus E11.9 Hypertension I10 Fever R50.9
[2023-04-16 17:09] LABS: Glucose Point of Care 303 mg/dL (70-110)
[2023-04-16 21:17] LABS: Glucose Point of Care 434 mg/dL (70-110)
[2023-04-16] MEDS: insulin lispro 100 unit/1 mL SUBCUT (22:19)
[2023-04-16] MEDS: insulin glargine 100 units/1 mL 10 UNIT SUBCUT (22:20)
[2023-04-17] VITALS (7 sets, daily range): BP systolic 154–166; BP diastolic 69–89; PULSE 62–76; RESP 14–18; TEMP 36.4–37.1; O2SAT 94–97
[2023-04-17] MEDS: piperacillin-tazobactam 3.375 GM in sodium chloride 0.9% (plus) 50 ML IV (01:46)
[2023-04-17 05:13] LABS: Basophils # 0.1 10^3/uL (0.0-0.1); Basophils % 0.7 %; Eosinophils # 0.5 10^3/uL (0.0-0.8); Eosinophils % 7.2 %; Hematocrit 26.4 % (37-53); Lymphocytes # 1.1 10^3/uL (0.8-4.8); Lymphocytes % 16.8 %; Mean Corpuscular HGB Conc 33.3 g/dL (30-55); Mean Corpuscular Hemoglobin 32.7 pg (27-33); Mean Corpuscular Volume 98.1 fl (82-101); Mean Platelet Volume 10.1 fL (7.4-10.4); Monocytes # 0.7 10^3/uL (0.2-0.9); Monocytes % 10.7 %; Neutrophils # 4.36 10^3/uL (1.8-7.7); Neutrophils % 64.2 %; Nucleated Red Blood Cells % 0 %; Platelet Count 321 10^3/cmm (157-399); Red Blood Count 2.69 10^6/uL (3.85-5.65); Red Cell Distribution Width 13.4 % (12.1-15.1)
--- NOTE | 2023-04-17 05:18 | PC.NURSE ---
upon shift assessment at 1900 on 04/16. pt stated his insulin pump wasnt allowing him to demand dose. he stated the pump is still giving the basal rate depending on the time of day. pt stated he would call the pump people to help fix it later. at this time he is allowing nurse to dose off sliding scale and agreed to lantus prior to bed.
[2023-04-17] MEDS: heparin 5,000 unit/mL INJ 1 mL 5000 UNIT SUBCUT (05:28)
[2023-04-17 05:30] LABS: Anion Gap 18.4 (5-19); Blood Urea Nitrogen 32 mg/dL (8-23); Calcium 8.1 mg/dL (8.5-10.5); Carbon Dioxide 22 mmol/L (22-29); Chloride 96 mmol/L (98-107); Glucose 249 mg/dL (65-115); Osmolality Calculated 291 mOsm/kg (285-295); Potassium 3.4 mmol/L (3.5-5.1); Sodium 133 mmol/L (136-145)
[2023-04-17 05:31] LABS: Vancomycin Random 22.6 ug/mL (20.0-40.0)
[2023-04-17 06:29] LABS: Glucose Point of Care 208 mg/dL (70-110)
[2023-04-17] MEDS: heparin, porcine 1,000 unit/mL INJ 10 mL 1000 UNIT IV (08:36)
[2023-04-17] MEDS: heparin, porcine 1,000 unit/mL INJ 10 mL 10000 UNIT INTRACATH (08:41)
[2023-04-17] MEDS: insulin lispro 100 unit/1 mL SUBCUT (08:47)
--- NOTE | 2023-04-17 09:36 | PC.NURSE ---
at the hemodialysis
[2023-04-17] MEDS: epoetin alfa 1000 Unit/0.05 mL (ESRD) 20000 UNIT SUBCUT (10:29)
--- NOTE | 2023-04-17 10:34 | PM.PN ---
Subjective Subjective: afebrile No new complaints Medications: Reviewed: Yes Vitals/I&O/Wt Last Vital Signs Temp 97.6 F 04/17/23 08:00 Pulse 76 04/17/23 08:00 Resp 14 04/17/23 08:00 BP 154/87 04/17/23 08:00 Pulse Ox 95 04/17/23 08:00 O2 Del Method Room Air 04/17/23 08:00 04/16/23 04/17/23 04/17/23 22:59 06:59 14:59 Intake Total 190.625 / 996.000 440 / 1436.000 118 / 118 Output Total 0 / 0 Balance 190.625 / 996.000 440 / 1436.000 118 / 118 Weight last 48 hrs Weight 99.3 kg Physical Exam Narrative: awake , alert no distress s1s2 RRR per report Lungs clear per report no edema Data 04/17/23 04:27 04/17/23 04:27 Micro: Microbiology 04/14/23 13:45 Urine Culture - Final Urine,Clean Catch A&P Assessment and plan (1) ESRD (end stage renal disease): Plan 1. End-stage renal disease: On TTS schedule as outpatient last HD was Wednesday, , HD today , 2. Sepsis: Patient had fever of 102.4 on presentation, WBC scan- normal uptake @ AVF site , on Vanc and zosyn - Blood cultures neg so far -can DC with abx ( can be administered @ HD center ) and watch closely , 3. Hypertension: Blood pressure elevated on presentation, improved now 4. History of diabetes 5. Anemia: Hemoglobin 9.4 at goal, monitor Patient evaluated using audiovisual cart. Time spent 20 minutes. Attestations Medical Necessity Statement*: per medicine team Coding Level of Care Code Acute Code for Chg Fwd Diagnoses ESRD (end stage renal disease) N18.6
--- NOTE | 2023-04-17 10:34 | PM.DCS ---
Discharge Providers Date of Admission: 04/13/23 20:12 Date of Discharge: April 17, 2023 Attending Provider at Admission: Gilda Alejandre MD Attending Provider at Discharge: Gilda Alejandre MD Primary Care Provider: Joshua West MD Diagnoses at Discharge Discharge Diagnosis (1) Cellulitis: Status: Acute (2) ESRD (end stage renal disease): Status: Acute (3) Sepsis: Status: Acute (4) CAD (coronary artery disease): Status: Acute (5) Type 2 diabetes mellitus: Status: Acute (6) Hypertension: Status: Acute (7) Fever: Status: Acute Reason for Visit Reason for Visit: Fever/ chills Hospital Course Hospital Course Admitted for Fever of unknown origin. Patient was treated with vancomycin and Zosyn. White count trended down to normal and he became afebrile on the . He has not had another fever in the last 48 hours. Sutures seem irritated and it seems like a foreign body reaction at this point. Blood cultures were negative. No other source of infection identified. Urine culture negative. We have a discussion with the patient regarding tunneled catheter being infected however blood cultures are also negative patient's white count is normal and he is no longer having a fever. I will send patient home with 5 days of Augmentin at this point. He will follow-up with his vascular surgeon this Wednesday. Patient also had a chest pain episode in the hospital. He has stable angina. He was seen by cardiology. Patient has any more chest pain a stress test would be beneficial. Patient's questions were answered his daughter was updated. He will be discharged home in stable condition at this time. He will return to the ER if he has another fever. Patient demonstrates understanding. Please see last progress note for further details. Physical Exam Narrative: Pleasant and cooperative No active signs of fluid overload Insulin pump on his abdomen GCS 15 Nonfocal neuro exam Pleasant and cooperative Nonfocal neuro exam S1, S2 RR Erythema present at suture site on fistula right arm but improved since admission Discharge Data Studies Completed and Pending Completed Studies During Hospitalization Category Date Time Status XR chest 1V portable [id number] Stat Exams 04/13/23 14:30 Completed [facility] WBC scan* [id number] Routine Nuc Med 04/14/23 21:35 Completed CV. echo complete* [id number] Routine Ultrasound 04/14/23 13:21 Completed Pending at discharge Category Date Time Status Blood Culture Stat Lab 04/13/23 15:04 Results MAG [Magnesium] AM LABS Lab 04/18/23 04:00 Ordered Sputum Culture and Gram Stain Stat Lab 04/13/23 17:01 Uncollected Vancomycin Random AM LABS Lab 04/18/23 04:00 Ordered Laboratory Results WBC 6.80 10^3/uL (3.29-11.43) 04/17/23 04:27 RBC 2.69 10^6/uL (3.85-5.65) L 04/17/23 04:27 Hgb 8.80 g/dL (11.27-16.99) L 04/17/23 04:27 Hct 26.4 % (37-53) L 04/17/23 04:27 MCV 98.1 fl (82-101) 04/17/23 04:27 MCH 32.7 pg (27-33) 04/17/23 04:27 MCHC 33.3 g/dL (30-55) 04/17/23 04:27 RDW 13.4 % (12.1-15.1) 04/17/23 04:27 Plt Count 321 10^3/cmm (157-399) 04/17/23 04:27 MPV 10.1 fL (7.4-10.4) 04/17/23 04:27 Neut % (Auto) 64.2 % 04/17/23 04:27 Lymph % (Auto) 16.8 % 04/17/23 04:27 [place] % (Auto) 10.7 % 04/17/23 04:27 Eos % (Auto) 7.2 % 04/17/23 04:27 Baso % (Auto) 0.7 % 04/17/23 04:27 Neut # (Auto) 4.36 10^3/uL (1.8-7.7) 04/17/23 04:27 Lymph # (Auto) 1.1 10^3/uL (0.8-4.8) 04/17/23 04:27 [place] # (Auto) 0.7 10^3/uL (0.2-0.9) 04/17/23 04:27 Eos # (Auto) 0.5 10^3/uL (0.0-0.8) 04/17/23 04:27 Baso # (Auto) 0.1 10^3/uL (0.0-0.1) 04/17/23 04:27 Nucleated RBC % (auto) 0 % 04/17/23 04:27 Nucleated RBCs # 0.0 /100WBC 04/17/23 04:27 Sodium 133 mmol/L (136-145) L 04/17/23 04:27 Potassium 3.4 mmol/L (3.5-5.1) L 04/17/23 04:27 Chloride 96 mmol/L (98-107) L 04/17/23 04:27 Carbon Dioxide 22 mmol/L (22-29) 04/17/23 04:27 Anion Gap 18.4 (5-19) 04/17/23 04:27 BUN 32 mg/dL (8-23) H 04/17/23 04:27 Creatinine 6.5 mg/dL (0.7-1.2) H* 04/17/23 04:27 GFR Calculation Not Reportable 04/17/23 04:27 Glucose 249 mg/dL (65-115) H 04/17/23 04:27 POC Glucose 208 mg/dL (70-110) H 04/17/23 06:25 Estimat Average Glucose 223 04/16/23 04:25 Hemoglobin A1c 9.4 % (4.0-6.0) H 04/16/23 04:25 Calculated Osmolality 291 mOsm/kg (285-295) 04/17/23 04:27 Lactic Acid 1.7 mmol/L (0.5-2.2) 04/14/23 04:28 Lactic Acid (Sepsis) 1.2 mmol/L (0.5-2.2) 04/13/23 17:43 Calcium 8.1 mg/dL (8.5-10.5) L 04/17/23 04:27 Phosphorus 1.7 mg/dL (2.5-4.5) L 04/14/23 04:28 Magnesium 2.0 mg/dL (1.7-2.3) 04/17/23 04:27 Iron 19 ug/dL (59-158) L 04/15/23 03:38 TIBC 101 mcg/dl 04/15/23 03:38 % Saturation 18.8 % (20-50) L 04/15/23 03:38 Unsat Iron Binding 82 ug/dL (112-347) L 04/15/23 03:38 Total Bilirubin 0.5 mg/dL (0.15-1.2) 04/16/23 04:25 AST 14 U/L (0-40) 04/16/23 04:25 ALT 10 U/L (0-41) 04/16/23 04:25 Alkaline Phosphatase 69 U/L (40-130) 04/16/23 04:25 Troponin T Gen 5 ng/L 103 ng/L (0-15) H* 04/14/23 10:10 Troponin T 120 Minute 106.6 ng/L (0-15) H 04/14/23 12:00 Delta Troponin T 3.6 ABS# (0-10) 04/14/23 12:00 Troponin T Hi Sens 6Hr 110.1 ng/L (0-15) H 04/14/23 16:10 Troponin T Hi Sens 6Hr Delta 7.1 ng/L (0-12) 04/14/23 16:10 C-Reactive Protein 180.2 mg/L (0.0-4.9) H 04/14/23 04:28 Total Protein 6.1 g/dL (6.6-8.7) L 04/16/23 04:25 Albumin 3.5 g/dL (3.5-5.2) 04/16/23 04:25 Globulin 2.6 g/dL (1.3-4.6) 04/16/23 04:25 Triglycerides 215 mg/dL (0-150) H 04/16/23 04:25 Cholesterol 145 mg/dL (0-200) 04/16/23 04:25 LDL Cholesterol, Calc 70 mg/dL (50-129) 04/16/23 04:25 Total VLDL Cholesterol 43 mg/dL (0-30) H 04/16/23 04:25 HDL Cholesterol 32 mg/dL (60-100) L 04/16/23 04:25 Cholesterol/HDL Ratio 4.53 mg/dL (1.0-5.00) 04/16/23 04:25 Vitamin B12 1396 pg/mL (232-1245) H 04/15/23 03:38 Folate 9.6 ng/mL (4.5-32.2) 04/16/23 04:25 Procalcitonin 1.12 ng/mL (0-0.5) H 04/15/23 03:38 TSH 0.55 uIU/mL (0.27-4.20) 04/15/23 03:38 Urine Color Yellow (Yellow) 04/13/23 15:26 Urine Appearance Clear (CLEAR) 04/13/23 15:26 Urine pH 6 (5-7) 04/13/23 15:26 Ur Specific [place] 1.015 (1.005-1.030) 04/13/23 15:26 Urine Protein Neg (Negative) 04/13/23 15:26 Urine Glucose (UA) 4+ (Normal) H 04/13/23 15:26 Urine Ketones 1+ (Negative) H 04/13/23 15:26 Urine Blood Neg (Negative) 04/13/23 15:26 Urine Nitrate Negative (Negative) 04/13/23 15:26 Urine Bilirubin Neg (Negative) 04/13/23 15:26 Urine Urobilinogen Norm mg/dL (Negative) 04/13/23 15:26 Ur Leukocyte Esterase Negative (Negative) 04/13/23 15:26 Nasal Influ A H1 2008 PCR Not detected (NOT DETECT) 04/15/23 11:45 Random Vancomycin 22.6 ug/mL (20.0-40.0) 04/17/23 04:27 Adenovirus (PCR) Not detected (NOT DETECT) 04/15/23 11:45 C. pneumoniae DNA (PCR) Not detected (NOT DETECT) 04/15/23 11:45 Coronavirus 229E (PCR) Not detected (NOT DETECT) 04/15/23 11:45 Hep Bs Antigen Non-reactive (Nonreactive) 04/14/23 04:28 Hep Bs Antibody 65.4 (11.5-1000) 04/14/23 04:28 Human Metapneumovir PCR Not detected (NOT DETECT) 04/15/23 11:45 Influenza A (H1) PCR Not detected (NOT DETECT) 04/15/23 11:45 Influenza A (H3) PCR Not detected (NOT DETECT) 04/15/23 11:45 Influenza Type A Ag negative (Negative) 04/13/23 15:38 Influenza Type A (PCR) Not detected (NOT DETECT) 04/15/23 11:45 Influenza Type B Ag negative (Negative) 04/13/23 15:38 Influenza Type B (PCR) Not detected (NOT DETECT) 04/15/23 11:45 M. pneumoniae (PCR) Not detected (NOT DETECT) 04/15/23 11:45 Parainfluenza 1 (PCR) Not detected (NOT DETECT) 04/15/23 11:45 Parainfluenza 2 (PCR) Not detected (NOT DETECT) 04/15/23 11:45 Parainfluenza 3 (PCR) Not detected (NOT DETECT) 04/15/23 11:45 Parainfluenza 4 (PCR) Not detected (NOT DETECT) 04/15/23 11:45 RSV Type A (PCR) Not detected (NOT DETECT) 04/15/23 11:45 RSV Type B (PCR) Not detected (NOT DETECT) 04/15/23 11:45 Entero/Rhino (PCR) Not detected (NOT DETECT) 04/15/23 11:45 SARS-CoV-2 (PCR) Not detected (NOT DETECT) 04/15/23 11:45 Vitals Last Vital Signs Temp 97.6 F 04/17/23 08:00 Pulse 76 04/17/23 08:00 Resp 14 04/17/23 08:00 BP 154/87 04/17/23 08:00 Pulse Ox 95 04/17/23 08:00 O2 Del Method Room Air 04/17/23 08:00 Discharge Plan Discharge Patient Disposition: Home Condition: Stable Prescriptions: New amoxicillin-pot clavulanate 875-125 mg tablet 1 tab PO BID 5 Days Qty: 10 0RF Continued (DME) Diabetic shoes with 3 inserts See Rx Instructions .Route .MEDSUPPLY Qty: 1 0RF Rx Instructions: As directed atorvastatin 80 mg tablet 80 mg PO DAILY clonidine HCl 0.1 mg tablet 0.1 mg PO Q4H PRN (Reason: BP greater than 160) metoprolol succinate 100 mg tablet extended release 24 hr 100 mg PO DAILY Vitamin B-12 1,000 mcg Tablet 1,000 mcg PO DAILY hydralazine 25 mg tablet 25 mg PO BID PRN (Reason: BP greater than 140) melatonin 3 mg Tablet 3 mg PO BEDTIME clopidogrel 75 mg tablet 75 mg PO DAILY aspirin 81 mg Tablet,Delayed Release (Dr/Ec) 81 mg PO DAILY acetaminophen 650 mg Tablet Extended Release 650 mg PO Q12H PRN (Reason: Pain) isosorbide mononitrate 60 mg tablet extended release 24 hr 60 mg PO BID ascorbic acid (vitamin C) [Vitamin C] 500 mg Tablet 1,000 mg PO DAILY tamsulosin 0.4 mg capsule 0.4 mg PO DAILY Novolog U-100 Insulin aspart 100 unit/mL solution 5 - 10 unit SUBCUT TID pantoprazole 40 mg tablet,delayed release (DR/EC) 40 mg PO BEDTIME Tums 200 mg calcium (500 mg) Tablet,Chewable 400 mg PO QID PRN (Reason: unknown) Nitrostat 0.4 mg Tablet, Sublingual 0.4 mg SUBLINGUAL Q5M PRN (Reason: Chest Pain) Rx Instructions: do not exceed 3 doses per episode bumetanide 1 mg tablet 1 mg PO DAILY finasteride 5 mg tablet 5 mg PO DAILY ranolazine 500 mg tablet extended release 12 hr 500 mg PO BID Vitamin D3 125 mcg (5,000 unit) Tablet 125 mcg PO DAILY nifedipine 60 mg Tablet Extended Release 60 mg PO DAILY Discharge Orders: Discharge Order (Routine); Ordered 04/17/23 Ordered By: Gilda Alejandre Referrals: Joshua West MD [Primary Care Provider] - 4-7 days (Please call Dr. West Office on Wednesday or Wednesday at [phone] to schedule a follow up appointment. Thank you.) Discharge Diet: Cardiac and Diabetic Discharge Activity: Resume usual activity Patient Instructions: Amoxicillin/Clavulanate Potassium (By mouth) (Augmentin, Augmentin..., Cellulitis (GEN), Sepsis (DC), End Stage Kidney Disease (DC), Opioid Safety Activity Restrictions/Additional Instructions: Please follow up with your vascular surgeon on thursday 04/19 after discharge. If you have another fever please return to the ER. Monitor your temperature at home. Discharge Attestations Time Spent in Discharge Care*: greater than 30 min Quality Metrics Clinical Quality Measures [ No reported AMI, CVA or VTE this stay] Coding Level of Care Code 77087 Total time (in minutes) for Discharge: 40 Diagnoses Cellulitis L03.90 ESRD (end stage renal disease) N18.6 Sepsis A41.9 CAD (coronary artery disease) I25.10 Type 2 diabetes mellitus E11.9 Hypertension I10 Fever R50.9
--- NOTE | 2023-04-17 10:46 | PC.NURSE ---
meds to bed called in to [facility] pharmacy.
[2023-04-17] MEDS: ranolazine (12HR) 500 mg Tablet PO (11:40)
[2023-04-17] MEDS: aspirin 81 mg EC Tablet PO (11:40)
[2023-04-17] MEDS: pantoprazole DR 40 mg Tablet PO (11:41)
[2023-04-17] MEDS: metoprolol succinate ER (24 HR) 100 mg Tablet PO (11:41)
[2023-04-17] MEDS: clopidogrel 75 mg Tablet PO (11:41)
[2023-04-17] MEDS: atorvastatin 40 mg Tablet 80 MG PO (11:41)
[2023-04-17] MEDS: isosorbide mononitrate ER 60 mg Tablet PO (11:41)
[2023-04-17] MEDS: finasteride 5 mg Tablet PO (11:41)
[2023-04-17] MEDS: tamsulosin 0.4 mg Capsule PO (11:42)
--- NOTE | 2023-04-17 12:46 | PC.NURSE ---
pt is on dialysis still.
[2023-04-17 13:01] LABS: Glucose Point of Care 117 mg/dL (70-110)
[2023-04-17] MEDS: vancomycin 1,000 MG in sodium chloride 0.9% 250 ML 250 MG IV (13:04)
--- NOTE | 2023-04-17 14:58 | PC.NURSE ---
Discharge Note Patient discharged to home with via wheelchair accompanied by grandkids. Discharge instructions reviewed with patient and/or advertising representative. Mobile pharmacy medications and/or prescriptions provided. Belongings/home medications returned.
== END 2023-04-17 14:57 | disposition home or self-care (01) | DRG 314 ==
LOC: ER 16:15 → MEDSURG 20:12 → CSU 04-14 15:40
PROVIDERS: Hospitalist; Internal Medicine; Student in an Organized Health Care Education/Training Program; Admitting Provider Internal Medicine; Emergency Provider Family Medicine; PCP Internal Medicine; Visit Provider Internal Medicine
DX: T82.7XXA Infection and inflammatory reaction due to other cardiac and vascular devices, implants and grafts, initial encounter (principal); A41.9 Sepsis, unspecified organism; N18.6 End stage renal disease; I12.0 Hypertensive chronic kidney disease with stage 5 chronic kidney disease or end stage renal disease; L03.113 Cellulitis of right upper limb; Y83.2 Surgical operation with anastomosis, bypass or graft as the cause of abnormal reaction of the patient, or of later complication, without mention of misadventure at the time of the procedure; Z95.5 Presence of coronary angioplasty implant and graft; I25.118 Atherosclerotic heart disease of native coronary artery with other forms of angina pectoris; E11.22 Type 2 diabetes mellitus with diabetic chronic kidney disease; Z99.2 Dependence on renal dialysis; Z96.41 Presence of insulin pump (external) (internal); E78.5 Hyperlipidemia, unspecified; G43.909 Migraine, unspecified, not intractable, without status migrainosus; D63.1 Anemia in chronic kidney disease; E11.65 Type 2 diabetes mellitus with hyperglycemia
CPT/HCPCS: 36415; 36416; 71045; 78802; 80048; 80053; 80061; 80202; 81003; 82607; 82746; 82962; 83036; 83540; 83550; 83605; 83735; 84100; 84145; 84443; 84484; 85025; 86140; 86706; 87040; 87086; 87340; 87486; 87581; 87633; 87635; 87804; 90935; 93005; 93306; 94664; 96372; 99285; A9569; J1644; J1815; J2543; J3370; J3490; J7030; J7050; J7120; P9047; Q3014; Q4081

== ENCOUNTER 2023-07-21 08:27 | Emergency (ER) | payer OTHER, SELFPAY ==
[2023-07-21 08:29] VITALS: BP 153/91; PULSE 81; TEMP 36.8; O2SAT 92; BMI 29.7
[2023-07-21 08:38] LABS: Glucose Point of Care 432 mg/dL (70-110)
[2023-07-21 08:59] LABS: Basophils # 0.1 10^3/uL (0.0-0.1); Basophils % 0.5 %; Eosinophils % 0.2 %; Hematocrit 28.4 % (37-53); Lymphocytes # 1.2 10^3/uL (0.8-4.8); Lymphocytes % 11.7 %; Mean Corpuscular HGB Conc 33.5 g/dL (30-55); Mean Corpuscular Hemoglobin 32.1 pg (27-33); Mean Corpuscular Volume 95.9 fl (82-101); Mean Platelet Volume 9.8 fL (7.4-10.4); Monocytes # 0.9 10^3/uL (0.2-0.9); Monocytes % 9.4 %; Neutrophils # 7.67 10^3/uL (1.8-7.7); Nucleated Red Blood Cells % 0.2 %; Platelet Count 317 10^3/cmm (157-399); Red Blood Count 2.96 10^6/uL (3.85-5.65); Red Cell Distribution Width 15.9 % (12.1-15.1); White Blood Count 9.83 10^3/uL (3.29-11.43)
--- NOTE | 2023-07-21 09:15 | ED_ITS ---
HPI - Recheck/Abnormal Lab/Rx 2 General: Chief Complaint: Recheck/Abnormal Lab/Rx Stated Complaint: High BS Time Seen by Provider: 07/21/23 08:39 Source: patient Mode of arrival: ambulatory History of Present Illness: 72-year-old male presents emergency room from dialysis. His glucose monitor read high he states he been taking some candy for dry mouth last day or so. He gave himself a bolus of insulin they were concerned there that he may be in DKA and deferred his dialysis until he was evaluated. He denies any recent fever sweats or chills cough or shortness of breath no dysuria urgency or frequency. Before arriving Sol symptoms self with 10 units of insulin. On arrival here he is in the 400s with superglue bolus another 10 units. No chest abdominal pain no skin irritation wounds or infections that he is noticed. MD complaint: wound re-check Associated symptoms: none Review of Systems 2 Const: Denies: fever(s) or chills Card: Denies: chest pain Resp: Denies: dyspnea GI: Denies: abdominal pain : Denies: dysuria, urinary frequency or urinary urgency Musc: Denies: neck pain or back pain Skin/Breast: Denies: rash PFSH ED 2 PFSH: Medical History Hypertension Migraines Hyperlipidemia Type 2 diabetes mellitus CAD (coronary artery disease) ESRD (end stage renal disease) Surgical History H/O hernia repair Stented coronary artery Social History Substance/Drug Use: never Physical Exam 2 Const: COMMON NORMALS: no acute distress GENERAL APPEARANCE: cooperative and comfortable ORIENTATION/CONSCIOUSNESS: Yes awake, Yes oriented to person, Yes oriented to place and Yes oriented to time HENMT: COMMON NORMALS: normocephalic, atraumatic and hearing grossly normal bilaterally HEAD & SCALP: normocephalic and atraumatic Resp: COMMON NORMALS: normal respiratory effort, No retractions, No use of accessory muscles and clear to auscultation bilaterally AUSCULTATION: clear to auscultation bilaterally Cardio: COMMON NORMALS: regular rate, regular rhythm and No murmurs present (Cardio) RATE: regular rate RHYTHM: regular rhythm GI: COMMON NORMALS: Soft to palpation and No hepatosplenomegaly present A USCULTATION: Yes normoactive bowel sounds PALPATION: Yes Soft to palpation, No Tenderness to palpation present (GI), No Guarding due to palpation present (GI) and Yes No hepatosplenomegaly present Extremity: COMMON NORMALS: normal to inspection, capillary refill normal, no clubbing, cyanosis or edema, no calf tenderness and no pedal edema Neuro: SENSORIUM/ORIENTATION: Yes oriented to person, Yes oriented to place and Yes oriented to time Skin: COMMON NORMALS: no rashes or lesions noted GENERAL SKIN EXAM: no rashes or lesions noted Course 2 Vital Signs: Vital signs: Vital Signs Temperature 98.2 F 07/21/23 08:29 Pulse Rate 81 07/21/23 08:29 Blood Pressure 153/91 07/21/23 08:29 Pulse Oximetry 92 07/21/23 08:29 Oxygen Delivery Me thod Room Air 07/21/23 08:29 MDM - Recheck/Abnormal Lab/Rx Medical Decision Making Blood sugar improved after insulin patient states he still feels fine his ketones are negative his anion gap is not significantly elevated he is chronically anemic is unchanged he has no other symptoms will discharge patient to dialysis clinic for usual dialysis run. Recommend continued monitoring blood sugars. This is likely caused by change in diet. Medical Records I reviewed the patient's medical records. Lab Data I reviewed the patient's lab results. 07/21/23 08:52 07/21/23 08:52 Laboratory Results WBC 9.83 10^3/uL (3.29-11.43) 07/21/23 08:52 RBC 2.96 10^6/uL (3.85-5.65) L 07/21/23 08:52 Hgb 9.50 g/dL (11.27-16.99) L 07/21/23 08:52 Hct 28.4 % (37-53) L 07/21/23 08:52 MCV 95.9 fl (82-101) 07/21/23 08:52 MCH 32.1 pg (27-33) 07/21/23 08:52 MCHC 33.5 g/dL (30-55) 07/21/23 08:52 RDW 15.9 % (12.1-15.1) H 07/21/23 08:52 Plt Count 317 10^3/cmm (157-399) 07/21/23 08:52 MPV 9.8 fL (7.4-10.4) 07/21/23 08:52 Neut % (Auto) 78.0 % 07/21/23 08:52 Lymph % (Auto) 11.7 % 07/21/23 08:52 [place] % (Auto) 9.4 % 07/21/23 08:52 Eos % (Auto) 0.2 % 07/21/23 08:52 Baso % (Auto) 0.5 % 07/21/23 08:52 Neut # (Auto) 7.67 10^3/uL (1.8-7.7) 07/21/23 08:52 Lymph # (Auto) 1.2 10^3/uL (0.8-4.8) 07/21/23 08:52 [place] # (Auto) 0.9 10^3/uL (0.2-0.9) 07/21/23 08:52 Eos # (Auto) 0.0 10^3/uL (0.0-0.8) 07/21/23 08:52 Baso # (Auto) 0.1 10^3/uL (0.0-0.1) 07/21/23 08:52 Nucleated RBC % (auto) 0.2 % 07/21/23 08:52 Nucleated RBCs # 0.0 /100WBC 07/21/23 08:52 Sodium 135 mmol/L (136-145) L 07/21/23 08:52 Potassium 4.0 mmol/L (3.5-5.1) 07/21/23 08:52 Chloride 90 mmol/L (98-107) L 07/21/23 08:52 Carbon Dioxide 28 mmol/L (22-29) 07/21/23 08:52 Anion Gap 21.0 (5-19) H 07/21/23 08:52 BUN 53 mg/dL (8-23) H 07/21/23 08:52 Creatinine 4.6 mg/dL (0.7-1.2) H 07/21/23 08:52 GFR Calculation Not Reportable 07/21/23 08:52 Glucose 392 mg/dL (65-115) H 07/21/23 08:52 POC Glucose 294 mg/dL (70-110) H 07/21/23 10:05 Calculated Osmolality 311 mOsm/kg (285-295) H 07/21/23 08:52 Calcium 9.0 mg/dL (8.5-10.5) 07/21/23 08:52 Total Bilirubin 0.7 mg/dL (0.15-1.2) 07/21/23 08:52 AST 45 U/L (0-40) H 07/21/23 08:52 ALT 51 U/L (0-41) H 07/21/23 08:52 Alkaline Phosphatase 119 U/L (40-130) 07/21/23 08:52 Total Protein 7.4 g/dL (6.6-8.7) 07/21/23 08:52 Albumin 3.9 g/dL (3.5-5.2) 07/21/23 08:52 Globulin 3.5 g/dL (1.3-4.6) 07/21/23 08:52 Serum Ketones Negative (Negative) 07/21/23 08:52 All radiology interpretation(s) finalized by discharge Discharge Plan Discharge Patient Disposition: Home Clinical Impression: Hyperglycemia, Type 2 diabetes mellitus, ESRD (end stage renal disease) Condition: Stable Prescriptions: No Action (DME) Diabetic shoes with 3 inserts See Rx Instructions .Route .MEDSUPPLY Qty: 1 0RF Rx Instructions: As directed atorvastatin 80 mg tablet 80 mg PO QPM clonidine HCl 0.1 mg tablet 0.1 mg PO Q4H PRN (Reason: BP greater than 160) metoprolol succinate 100 mg tablet extended release 24 hr 100 mg PO QAM cyanocobalamin (vitamin B-12) [Vitamin B-12] 1,000 mcg Tablet 1,000 mcg PO BEDTIME hydralazine 25 mg tablet 25 mg PO BID PRN (Reason: BP greater than 140) melatonin 3 mg Tablet 9 mg PO BEDTIME PRN (Reason: Sleep) clopidogrel 75 mg tablet 75 mg PO QAM aspirin 81 mg Tablet,Delayed Release (Dr/Ec) 81 mg PO QAM isosorbide mononitrate 60 mg tablet extended release 24 hr 60 mg PO BID ascorbic acid (vitamin C) [Vitamin C] 500 mg Tablet 1,000 mg PO BEDTIME tamsulosin 0.4 mg capsule 0.4 mg PO BEDTIME insulin aspart U-100 [Novolog U-100 Insulin aspart] 100 unit/mL solution See Rx Instructions .ROUTE .COMPLEX Rx Instructions: uses with insulin pump as directed ss based on carbs pantoprazole 40 mg tablet,delayed release (DR/EC) 40 mg PO BEDTIME calcium carbonate [Tums] 200 mg calcium (500 mg) Tablet,Chewable 400 mg PO QID PRN (Reason: unknown) nitroglycerin [Nitrostat] 0.4 mg Tablet, Sublingual 0.4 mg SUBLINGUAL Q5M PRN (Reason: Chest Pain) Rx Instructions: do not exceed 3 doses per episode bumetanide 1 mg tablet 1 mg PO QAM finasteride 5 mg tablet 5 mg PO QAM ranolazine 500 mg tablet extended release 12 hr 500 mg PO BID nifedipine 60 mg Tablet Extended Release See Rx Instructions .ROUTE .COMPLEX Rx Instructions: 60 mg orally daily except hold on dialysis days on mon,wed,and fri Tylenol 325 mg Tablet 650 mg PO Q4H PRN (Reason: Pain) tramadol 50 mg tablet 50 mg PO TID PRN (Reason: Pain) ondansetron 4 mg tablet,disintegrating 4 mg PO Q6H PRN (Reason: Nausea And Vomiting) Vitamin D3 25 mcg (1,000 unit) Tablet 25 mcg PO BEDTIME Discharge Orders: Discharge ED (Routine); Ordered 07/21/23 Ordered By: Roverto Kunz Referrals: Joshua West MD [Primary Care Provider] - Patient Instructions: Opioid Safety, Pain Management Activity Restrictions/Additional Instructions: Thank you for choosing [facility] for your healthcare needs today. Please realize this is an emergency room and that we are providing you with a medical screening exam and this may not be complete and all inclusive of all the testing and or work up that you may need to determine your ailment or severity of your illness. It is very important that you follow up as instructed or that you return to the Emergency Department should you have concerns or if your condition changes or worsens in any way. You are seen today with elevated blood sugar. It is likely due to the recent changes your diet your blood sugar improved with insulin administration there is no evidence of DKA on your lab work. Recommend you return to dialysis for completion of your routine dialysis run today. Coding Level of Care Code ED Vice President [employer] Communications for Gabrielle Lagunas
[2023-07-21 09:18] LABS: Ketone (Acetest) Serum Negative (Negative)
[2023-07-21 09:19] LABS: Alanine Aminotransferase 51 U/L (0-41); Albumin Level 3.9 g/dL (3.5-5.2); Alkaline Phosphatase 119 U/L (40-130); Aspartate Amino Transferase 45 U/L (0-40); Blood Urea Nitrogen 53 mg/dL (8-23); Carbon Dioxide 28 mmol/L (22-29); Chloride 90 mmol/L (98-107); Globulin 3.5 g/dL (1.3-4.6); Glucose 392 mg/dL (65-115); Osmolality Calculated 311 mOsm/kg (285-295); Sodium 135 mmol/L (136-145); Total Bilirubin 0.7 mg/dL (0.15-1.2); Total Protein 7.4 g/dL (6.6-8.7)
[2023-07-21 10:07] LABS: Glucose Point of Care 294 mg/dL (70-110)
== END 2023-07-21 10:51 | disposition home or self-care (01) ==
PROVIDERS: Emergency Provider Family Medicine; PCP Internal Medicine
DX: E11.65 Type 2 diabetes mellitus with hyperglycemia (principal); I12.0 Hypertensive chronic kidney disease with stage 5 chronic kidney disease or end stage renal disease; E11.22 Type 2 diabetes mellitus with diabetic chronic kidney disease; N18.6 End stage renal disease; Z99.2 Dependence on renal dialysis; E78.5 Hyperlipidemia, unspecified; I25.10 Atherosclerotic heart disease of native coronary artery without angina pectoris; Z79.02 Long term (current) use of antithrombotics/antiplatelets; Z79.82 Long term (current) use of aspirin; Z79.4 Long term (current) use of insulin
CPT/HCPCS: 36415; 36416; 80053; 82009; 82962; 85025; 99283

== ENCOUNTER 2023-12-17 11:56 | Emergency (ER) | payer OTHER, MEDICARE, SELFPAY ==
[2023-12-17 12:00] VITALS: BP 144/61; PULSE 62; RESP 18; TEMP 36.4; O2SAT 97; BMI 27.1
--- NOTE | 2023-12-17 12:50 | CTR_ITS ---
PROCEDURE INFORMATION: Exam: CT Chest Without Contrast; Diagnostic Exam date and time: 12/17/2023 1:22 PM Age: 73 years old Clinical indication: Injury or trauma; Blunt trauma (contusions or hematomas); Injury details: Chest trauma from fall, poss right sided rib fracture; Prior surgery; Surgery date: 6+ months; Surgery type: Cardiac stent, dialysis cath; Additional info: Eval chest trauma from fall, poss right sided rib fracture TECHNIQUE: Imaging protocol: Diagnostic computed tomography of the chest without contrast. Radiation optimization: All CT scans at this facility use at least one of these dose optimization techniques: automated exposure control; mA and/or kV adjustment per patient size (includes targeted exams where dose is matched to clinical indication); or iterative reconstruction. COMPARISON: CR XR chest 1V portable [id number] 04/13/2023 2:45 PM RADIATION DOSE METRICS: Total DLP (mGy-cm): 600.35 FINDINGS: Lungs: No lung contusion, hematoma or posttraumatic pneumatocele. Prior pulmonary granulomatous disease. Pleural spaces: Trace right pleural effusion. No pneumothorax. Heart: The heart is not enlarged. No pericardial effusion. Coronary arteries: Extensive calcified coronary artery atherosclerotic plaque visualized. Lymph nodes: Calcified left hilar and aorticopulmonary window lymph nodes from prior granulomatous disease. Vasculature: The thoracic aorta is mildly atherosclerotic. No thoracic aortic aneurysm or displaced intimal calcifications. Bones/joints: There are mild buckle fractures of the lateral 3rd through 6th ribs. The most obvious is involving the 5th rib (4:40). Soft tissues: Mild bilateral gynecomastia. CT/CT chest con [id number] IMPRESSION: 1. Multiple mild right rib buckle fractures. 2. No pneumothorax.
--- NOTE | 2023-12-17 12:51 | ECG_ITS ---
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 Measurements Intervals [place] Rate: 64 P: 25 PA: 215 QRS: -17 QRSD: 126 T: 231 QT: 464 QTc: 481 Interpretive Statements SINUS RHYTHM WITH FIRST DEGREE AV BLOCK WITH OCCASIONAL VENTRICULAR PREMATURE COMPLEXES LEFT VENTRICULAR HYPERTROPHY AND ST-T CHANGE [VOLTAGE CRITERIA PLUS ST/T ABNORMALITY] Compared to ECG 04/14/2023 18:03:12 Ventricular premature complex(es) now present Left-axis deviation no longer present ST (T wave) deviation still present Electronically Signed On 12-17-2023 13:18:12 CDT by Cliff Vanessa M.D. [id number]
--- NOTE | 2023-12-17 12:52 | W.ED.FALL ---
HPI - Fall General: Chief Complaint: Fall Stated Complaint: right side pain, fall Time Seen by Provider: 12/17/23 12:44 History of Present Illness: HPI: Patient fell on 12/06 while putting his pills in his pill sorter at the table. He fell striking the right side of his chest on the ground. He has had progressive pain in that side of the chest and now has difficulty breathing on that side of his chest. Stopped his anticoagulation as planned last week post cardiac stent 2 years ago. Describes pain as aching, stays in his right axilla, no anterior chest pain, no index cardiac chest pain symptoms, no radiation of the pain into his abdomen, back, neck, or other side of his chest. No cough, fevers, chills. Worse with maximal inspiration and better with rest. ROS: 10 systems reviewed and otherwise unremarkable except for those noted in HPI. Physical Exam: Triage vital signs reviewed General: No acute distress, cooperative and comfortable HEENT: Normocephalic, atraumatic, external ears normal, moist mucous membranes, PERRLA. Chest: Normal inspection, equal rise and fall, no edema Respiratory: Normal respiratory effort, no atypical respiratory sounds, clear to auscultation bilaterally GI: Non-tender to palpation, non-distended, Extremities: Moving all 4 extremities easily, no deformities Neuro: No meningeal signs, motor function in the room without abnormalities, sensation intact Skin: No rashes, bruising, warm, dry Procedures: EKG: Rate: Normal Rhythm: Sinus Matthews: Normal variant Intervals: Normal Ischemia: No STEMI criteria MDM: Considered diagnoses include pulmonary contusion, rib fracture, musculoskeletal chest wall pain, strain, referred abdominal pathology, atypical PE or ACS. Feel most consistent with blunt chest wall trauma and associated musculoskeletal pain. Advised continued [id number] medications including Motrin and Vital signs nonactionable. Based on history, exam, and any results indicate rib fractures. Patient has been managing these at home without any complication. Offered patient admission for physical therapy after a space decision-making discussion. Patient elects to continue managing symptoms at home with conservative treatment. Patient educated about reasons to return to the emergency department including signs of ongoing or changing condition. Advised to make an appointment with primary care or to establish care with a primary care provider to review all results from this encounter. This note was written with assistance of dictation software. Contact author for any clarification of typos. Kane Olson MD [facility] ED PFS: Medical History Hypertension Migraines Hyperlipidemia Type 2 diabetes mellitus CAD (coronary artery disease) ESRD (end stage renal disease) Surgical History H/O hernia repair Stented coronary artery Social History Substance/Drug Use: never Course Vital Signs: Vital signs: Vital Signs Temperature 97.6 F 12/17/23 12:00 Pulse Rate 62 12/17/23 12:00 Respiratory Rate 18 12/17/23 12:00 Blood Pressure 144/61 12/17/23 12:00 Pulse Oximetry 97 12/17/23 12:00 Oxygen Delivery Me thod Room Air 12/17/23 12:00 MDM - Fall Medical Decision Making see [facility] Lab Data Radiology Impressions Chest CT 12/17/23 12:50 IMPRESSION: 1. Multiple mild right rib buckle fractures. 2. No pneumothorax. All radiology interpretation(s) finalized by discharge Discharge Plan Discharge Patient Disposition: Home Clinical Impression: Fracture, ribs Qualifiers: Encounter type: initial encounter Fracture type: closed Laterality: right Qualified Code(s): S22.41XA - Multiple fractures of ribs, right side, initial encounter for closed fracture Condition: Stable Prescriptions: No Action (DME) Diabetic shoes with 3 inserts See Rx Instructions .Route .MEDSUPPLY Qty: 1 0RF Rx Instructions: As directed atorvastatin 80 mg tablet 80 mg PO QPM clonidine HCl 0.1 mg tablet 0.1 mg PO Q4H PRN (Reason: BP greater than 160) metoprolol succinate 100 mg tablet extended release 24 hr 100 mg PO QAM cyanocobalamin (vitamin B-12) [Vitamin B-12] 1,000 mcg Tablet 1,000 mcg PO BEDTIME hydralazine 25 mg tablet 25 mg PO BID PRN (Reason: BP greater than 140) melatonin 3 mg Tablet 9 mg PO BEDTIME PRN (Reason: Sleep) clopidogrel 75 mg tablet 75 mg PO QAM aspirin 81 mg Tablet,Delayed Release (Dr/Ec) 81 mg PO QAM isosorbide mononitrate 60 mg tablet extended release 24 hr 60 mg PO BID ascorbic acid (vitamin C) [Vitamin C] 500 mg Tablet 1,000 mg PO BEDTIME tamsulosin 0.4 mg capsule 0.4 mg PO BEDTIME insulin aspart U-100 [Novolog U-100 Insulin aspart] 100 unit/mL solution See Rx Instructions .ROUTE .COMPLEX Rx Instructions: uses with insulin pump as directed ss based on carbs pantoprazole 40 mg tablet,delayed release (DR/EC) 40 mg PO BEDTIME calcium carbonate [Tums] 200 mg calcium (500 mg) Tablet,Chewable 400 mg PO QID PRN (Reason: unknown) nitroglycerin [Nitrostat] 0.4 mg Tablet, Sublingual 0.4 mg SUBLINGUAL Q5M PRN (Reason: Chest Pain) Rx Instructions: do not exceed 3 doses per episode finasteride 5 mg tablet 5 mg PO QAM ranolazine 500 mg tablet extended release 12 hr 500 mg PO BID acetaminophen [Tylenol] 325 mg Tablet 650 mg PO Q4H PRN (Reason: Pain) tramadol 50 mg tablet 50 mg PO TID PRN (Reason: Pain) ondansetron 4 mg tablet,disintegrating 4 mg PO Q6H PRN (Reason: Nausea And Vomiting) cholecalciferol (vitamin D3) [Vitamin D3] 25 mcg (1,000 unit) Tablet 25 mcg PO BEDTIME nifedipine 30 mg tablet extended release 30 mg PO DAILY PRN (Reason: Angina) ezetimibe 10 mg tablet 10 mg PO DAILY Discharge Orders: Discharge ED (Routine); Ordered 12/17/23 Ordered By: Kane Olson Referrals: Joshua West MD [Primary Care Provider] - Discharge Diet: Advance as tolerated Discharge Activity: Resume usual activity Patient Instructions: Opioid Safety, Pain Management Activity Restrictions/Additional Instructions: It has been a pleasure caring for you in the emergency department. Please ensure that you follow-up with your primary care physician for review of all data obtained during this encounter including any incidental findings and laboratory values. Keep in mind that if your condition changes in any way I recommend that you return to the emergency department for repeat evaluation. Purchase some topical lidocaine patch (otherwise known as Lidoderm patches) from the convenient store and apply them to the side of your ribs. Take 1000 mg of Tylenol at breakfast lunch and dinner. Bones/joints: There are mild buckle fractures of the lateral 3rd through 6th ribs. The most obvious is involving the 5th rib (4:40). Soft tissues: Mild bilateral gynecomastia. Coding Level of Care Code ED [place] Supervisor for Gabrielle Lagunas
[2023-12-17 14:51] VITALS: BP 153/82; PULSE 58; RESP 18; O2SAT 95
== END 2023-12-17 14:55 | disposition home or self-care (01) ==
PROVIDERS: Emergency Provider General Practice; PCP Internal Medicine
DX: S22.41XA Multiple fractures of ribs, right side, initial encounter for closed fracture (principal); Z79.02 Long term (current) use of antithrombotics/antiplatelets; Z79.82 Long term (current) use of aspirin; Z79.4 Long term (current) use of insulin; E78.5 Hyperlipidemia, unspecified; I25.10 Atherosclerotic heart disease of native coronary artery without angina pectoris; E11.22 Type 2 diabetes mellitus with diabetic chronic kidney disease; I12.0 Hypertensive chronic kidney disease with stage 5 chronic kidney disease or end stage renal disease; N18.6 End stage renal disease; W19.XXXA Unspecified fall, initial encounter
CPT/HCPCS: 71250; 93005; 99284

== ENCOUNTER 2024-07-07 14:26 | Outpatient (CLI) | payer OTHER, SELFPAY ==
[2024-07-07 15:16] LABS: Bilirubin Urine Negative (Negative); Blood Urine Negative (Negative); Glucose Urine UA 1+ (Normal); Ketones Urine Trace (Negative); Leukocyte Esterase Urine Negative (Negative); Nitrate Urine Negative (Negative); Protein Urine 3+ (Negative); Specific Gravity, Urine 1.017 (1.005-1.030); Urine Appearance Clear (CLEAR); Urine Color Yellow (Yellow); pH Urine 6.5 (5-7)
[2024-07-07 15:18] LABS: Add Urine Microscopic? YES; Bacteria Urine None Seen /hpf; Hyaline Casts Urine 9.91 /lpf; RBC Urine 0-2 /hpf (0-2); Squamous Epithelial Cell Urine 0-5 /hpf (0-5); WBC Urine 0-5 /hpf (0-5)
[2024-07-07 15:30] LABS: Alanine Aminotransferase 10 U/L (0-41); Albumin Level 4.1 g/dL (3.5-5.2); Alkaline Phosphatase 71 U/L (40-130); Anion Gap 16.7 (5-19); Aspartate Amino Transferase 13 U/L (0-40); Blood Urea Nitrogen 47 mg/dL (8-23); Calcium 9.1 mg/dL (8.5-10.5); Carbon Dioxide 31 mmol/L (22-29); Chloride 95 mmol/L (98-107); Globulin 3.2 g/dL (1.3-4.6); Glucose 188 mg/dL (65-115); Osmolality Calculated 303 mOsm/kg (285-295); Potassium 4.7 mmol/L (3.5-5.1); Sodium 138 mmol/L (136-145); Total Bilirubin 0.5 mg/dL (0.15-1.2); Total Protein 7.3 g/dL (6.6-8.7)
[2024-07-07 15:40] LABS: UA Slide Review UA Slide Review Perf
== END 2024-07-07 14:27 | disposition home or self-care (01) ==
PROVIDERS: PCP Internal Medicine
DX: I25.10 Atherosclerotic heart disease of native coronary artery without angina pectoris (principal); N18.9 Chronic kidney disease, unspecified
CPT/HCPCS: 36415; 80053; 81001

== ENCOUNTER 2024-07-07 14:49 | Outpatient (CLI) | payer OTHER, SELFPAY ==
--- NOTE | 2024-07-07 14:52 | USCV_ITS ---
Elliot Flores Age: 73 Gender: M : 1950 Exam Date: 07/07/2024 15:02 Ordering Phys: Dhruv Irizarry Technologist: CT Exam Location: [facility] – [place] Indication: BP: 132 / 82 HR: 70 Rhythm: Sinus Technical Quality: Adequate MEASUREMENTS (Male / Female) Normal Values 2D ECHO LVOT Diameter 2.1 cm LV Ejection Fraction MOD 4C 41.2 % LV Ejection Fraction MOD 2C 43.4 % LV Ejection Fraction 2C AL 45.3 % LA Diameter 4.4 cm RA Systolic Volume 4C AL 36.8 ml RA Systolic Volume 4C MOD 36.6 ml LA Sys Volume AL 83.9 cm cubed LA Sys Volume Index AL 37.8 cm cubed/m squared Aorta at Sinotubular Diameter 2.3 cm M-MODE LA Ao Ratio MM 1.3 AV Cusp Separation MM 1.8 cm DOPPLER AV Peak Velocity 161.0 cm/s LVOT Peak Velocity 83.0 cm/s AV Area Cont Eq vti 1.9 cm squared AV Area Cont Eq pk 1.9 cm squared MV Peak Velocity 97.0 cm/s TV Peak E Velocity 75.0 cm/s PV Peak Velocity 115.5 cm/s FINDINGS Left Ventricle Left ventricle is normal size. LV systolic function is mildly reduced with EF of 45-50%. Moderate hypokinesis of inferoseptal and anteroseptal newell. Grade 1 diastolic dysfunction. Right Ventricle Normal in size and function Right Atrium Normal in size Left Atrium Normal in size Mitral Valve Structurally normal mitral valve. Trace mitral regurgitation. Aortic Valve Structurally normal aortic valve. No significant stenosis or regurgitation. Tricuspid Valve Insufficient TR jet to calculate RVSP Pulmonic Valve Not well visualized Pericardium Normal Aorta Normal in size IVC Not well visualized CONCLUSIONS LV systolic function is mildly reduced with EF of 45-50%. Above mentioned regional wall motion abnormalities. Grade 1 diastolic dysfunction. Trace mitral regurgitation Charles Murillo MD (Electronically Signed) Final Date: 08 July 2024 10:40 S
== END 2024-07-07 14:50 | disposition home or self-care (01) ==
LOC: RAD 14:49
PROVIDERS: PCP Internal Medicine; Visit Provider Chiropractor
DX: I25.10 Atherosclerotic heart disease of native coronary artery without angina pectoris (principal); N18.9 Chronic kidney disease, unspecified; R93.1 Abnormal findings on diagnostic imaging of heart and coronary circulation
CPT/HCPCS: 93306

== ENCOUNTER 2024-09-07 13:42 | Outpatient (CLI) | payer MEDICARE, OTHER, SELFPAY ==
--- NOTE | 2024-09-07 13:53 | XR_ITS ---
WS: [id number] XR chest 2V* [id number] REASON FOR EXAM: SHORTNESS OF BREATH FINDINGS: Moderate tortuosity and ectasia of the thoracic aorta. Mild cardiac enlargement. Coronary artery stents. Calcified granulomas disease in both hemithoraces. No acute pulmonary parenchymal abnormality. Moderate right pleural effusion. XR/XR chest 2V* [id number] IMPRESSION: Right pleural effusion.
== END 2024-09-07 13:43 | disposition home or self-care (01) ==
LOC: RAD 13:50
PROVIDERS: PCP Internal Medicine; Visit Provider Internal Medicine Nephrology
DX: R06.02 Shortness of breath (principal); J90 Pleural effusion, not elsewhere classified; I77.810 Thoracic aortic ectasia; J84.10 Pulmonary fibrosis, unspecified; I51.7 Cardiomegaly
CPT/HCPCS: 71046

== ENCOUNTER 2024-09-18 12:00 | Day surgery (SDC) | payer MEDICARE, OTHER, SELFPAY ==
--- NOTE | 2024-09-18 12:03 | US_ITS ---
WS: [id number] ULTRASOUND-GUIDED THORACENTESIS CLINICAL INFORMATION: Plueral effusion PROCEDURE: Informed consent: The risks, benefits, and alternatives of the procedure were discussed with the patient. Verbal and written consent was obtained. Timeout: A timeout was performed to confirm the correct patient, procedure, and site. Site: RIGHT Preparation: A suitable skin site was identified. The patient was prepped and draped in usual sterile fashion. Lidocaine 1% was used for local anesthesia. Catheter: 4 Macanese One-Step catheter. Fluid Volume: 600 ml Color: Clear yellow Discarded safely. Complications: None. / thoracentesis [id number] IMPRESSION: Uncomplicated ultrasound-guided RIGHT chest thoracentesis. Removal of 600 cc
[2024-09-18 12:10] VITALS: BP 150/73; PULSE 76; RESP 18; TEMP 36.6; O2SAT 91
[2024-09-18 12:34] LABS: INR 1.02 (0.8-1.2)
[2024-09-18 12:44] VITALS: BMI 29.8
[2024-09-18 12:53] VITALS: BP 132/62; PULSE 66; RESP 18; O2SAT 100
[2024-09-18 13:00] VITALS: BP 135/69; PULSE 64; RESP 18; O2SAT 100
--- NOTE | 2024-09-18 13:08 | XR_ITS ---
WS: [id number] CHEST XRAY TECHNIQUE: Portable chest. CLINICAL INFORMATION: post thoracentesis COMPARISON: 09/07/2024 FINDINGS: Heart: Cardiomegaly. Lungs: Improved RIGHT pleural effusion status post thoracentesis. Slight atelectasis LEFT lower lobe. Trace RIGHT pleural fluid/pleural thickening. No pneumothorax. Bones: Normal visualized bony structures. XR/XR chest 1V portable [id number] IMPRESSION: No pneumothorax post thoracentesis.
[2024-09-18 13:10] VITALS: BP 116/64; PULSE 66; RESP 18; O2SAT 100
[2024-09-18 13:20] VITALS: BP 138/71; PULSE 63; RESP 18; O2SAT 95
== END 2024-09-18 13:35 | disposition home or self-care (01) ==
LOC: GILAB 12:01
PROVIDERS: Radiology Neuroradiology; PCP Internal Medicine; Visit Provider Internal Medicine Nephrology
PROC: (CPT 32554; principal; 2024-09-18 12:30)
DX: J90 Pleural effusion, not elsewhere classified (principal)
CPT/HCPCS: 32555; 36415; 71045; 85610

== ENCOUNTER 2024-09-20 14:40 | Outpatient (CLI) | payer MEDICARE, OTHER, SELFPAY ==
--- NOTE | 2024-09-20 14:43 | CT_ITS ---
WS: [id number] CT chest wo con [id number] HISTORY: SHORTNESS OF BREATH, PLEURAL EFFUSION,F/U CHEST XRAY TECHNIQUE: Axial imaging performed through the thorax. Coronal and sagittal reformats are submitted. All CT scans at [facility] use at least one of these dose optimization techniques: automated exposure control; mA and/or kV adjustment per patient size (includes targeted exams where dose is matched to clinical indication); or iterative reconstruction. CONTRAST: Omnipaque 350; 100 mL IV. DLP: 479.75 mGy.cm COMPARISON: Radiograph 09/18/2024, CT 12/17/2023 Lungs and central airway: Mild hazy attenuation throughout both lungs probably due to small amount of fluid overload and edema. Benign calcified granuloma LEFT upper lobe. No pulmonary mass or pneumonia. Pleura: Small bilateral layering pleural effusions. There is a additional loculated component of the pleural effusion extending along the RIGHT lateral thorax. Heart and pericardium: Moderate cardiomegaly. Severe coronary artery calcification. Mediastinum and roberta: Small mediastinal and hilar lymph nodes. No pathologically enlarged lymph nodes. Vessels: Mild atherosclerosis aorta. Pulmonary size is equal to the aorta. Chest wall and lower neck: No soft tissue masses. Upper abdomen: No adrenal mass. Suprarenal aortic calcifications. Osseous structures: Mild increase in thoracic kyphosis. No thoracic spine fracture. No rib fractures identified. CT/CT chest wo con [id number] IMPRESSION: 1. Small bilateral simple layering pleural effusions. 2. Very small loculated pleural effusion along the RIGHT lateral thorax. 3. Mild interstitial edema. 4. Severe coronary artery atherosclerotic disease. 5. Moderate cardiomegaly.
== END 2024-09-20 14:41 | disposition home or self-care (01) ==
LOC: RAD 14:41
PROVIDERS: PCP Internal Medicine; Visit Provider Internal Medicine Nephrology
DX: J90 Pleural effusion, not elsewhere classified (principal); R60.0 Localized edema; I25.10 Atherosclerotic heart disease of native coronary artery without angina pectoris; I51.7 Cardiomegaly; R91.8 Other nonspecific abnormal finding of lung field; J84.10 Pulmonary fibrosis, unspecified; R59.0 Localized enlarged lymph nodes; I70.0 Atherosclerosis of aorta; M40.294 Other kyphosis, thoracic region
CPT/HCPCS: 71250